=== PATIENT | male | born 1945 | race Caucasian/White ===

== ENCOUNTER → 2017-07-25 | Outpatient (CLI) | payer MEDICARE ==
[~2017-07-25] MED LIST: ACHD5005 PO; CIPR500T4 PO; METR250T32 PO
[2017-07-25 11:07] LABS: HEMOGLOBIN 13.3 G/DL (13.3-17.7); MEAN PLATELET VOLUME 11.1 FL (7.4-10.4); RED BLOOD COUNT 4.35 10^6/uL (4.35-5.85); RED CELL DISTRIBUTION WIDTH 13.8 % (10.0-14.5); WHITE BLOOD COUNT 11.1 10^3/uL (4.3-11.0)
[2017-07-25 11:24] LABS: ALBUMIN 3.8 GM/DL (3.2-4.5); BILIRUBIN,DIRECT 0.3 MG/DL (0.0-0.3); BILIRUBIN,INDIRECT 0.2 MG/DL; BILIRUBIN,TOTAL 0.5 MG/DL (0.1-1.0); CALCIUM 9.4 MG/DL (8.5-10.1); CREATININE SERUM 1.36 MG/DL (0.60-1.30); POTASSIUM 3.5 MMOL/L (3.6-5.0); TOTAL PROTEIN 7.4 GM/DL (6.4-8.2)
== END ==
LOC: LAB 10:53
PROVIDERS: ATTEND Surgery
DX: K80.20 Calculus of gallbladder without cholecystitis without obstruction (principal)
CPT/HCPCS: 36415; 80053; 80076; 82150; 82248; 83690; 85027

== ENCOUNTER 2017-08-06 05:38 | Outpatient (CLI) | payer MEDICARE ==
[~2017-08-06] VITALS: Ht 177.8 cm; Wt 88.5 kg
[2017-08-06] MEDS ORDERED: METR250T32 PO (08:56)
[2017-08-06] MEDS ORDERED: CIPR500T4 PO (08:56)
[2017-08-07] MEDS ORDERED: ACHD5005 PO (13:49)
== END 2017-08-06 09:11 | disposition home or self-care (01) ==
LOC: PREOP 05:38
PROVIDERS: ATTEND Surgery
DX: Z01.818 Encounter for other preprocedural examination (principal)

== ENCOUNTER 2017-08-07 08:22 | Day surgery (SDC) | payer MEDICARE ==
[~2017-08-07] VITALS: Ht 177.8 cm; Wt 88.5 kg
[~2017-08-07 08:22] MED LIST changes: -ACHD5005 PO
--- OUTSIDE RECORDS SUMMARY | 2017-08-07 08:26 | XMS REPORT ---
Author Author EZRA CHANG Organization [employer] Address Unknown Phone Unavailable Care Team Providers Care Synthetic Plasterer Name Role Phone EZRA CHANG CP Unavailable Allergies No Known Allergies Problems Problem Type Condition Code Onset Dates Condition Status Problem Overweight E66.3 Active Problem Family history of heart disease Z82.49 Active Problem Hypertension I10 Active Medications No Known Medications Vital Signs Date/Time: Dec 09, 2015 Blood Pressure Diastolic 88 mmHg Blood Pressure Systolic 142 mmHg Height 70 in Results No Known Results Summary Purpose eClinicalWorks Submission
--- OUTSIDE RECORDS SUMMARY | 2017-08-07 08:26 | XMS REPORT ---
Author Author EZRA CHANG Organization [employer] Address Unknown Phone Unavailable Care Team Providers Care Plunger Shovel Operator Name Role Phone EZRA CHANG CP Unavailable Allergies No Known Allergies Problems Problem Type Condition Code Onset Dates Condition Status Problem Overweight E66.3 Active Problem Family history of heart disease Z82.49 Active Problem Hypertension I10 Active Problem Screening examination for pulmonary tuberculosis V74.1 Active Medications No Known Medications Vital Signs Date/Time: June 16, 2015 Blood Pressure Diastolic 72 mmHg Blood Pressure Systolic 110 mmHg Height 70 in Results No Known Results Summary Purpose eClinicalWorks Submission
--- OUTSIDE RECORDS SUMMARY | 2017-08-07 08:26 | XMS REPORT ---
Author Author EZRA CHANG Organization [employer] Address Unknown Phone Unavailable Care Team Providers Care Outpatient Case Manager Name Role Phone EZRA CHANG CP Unavailable Allergies No Known Allergies Problems Problem Type Condition Code Onset Dates Condition Status Problem Overweight E66.3 Active Problem Family history of heart disease Z82.49 Active Problem Hypertension I10 Active Problem Screening examination for pulmonary tuberculosis V74.1 Active Assessment Hypertension I10 Active Medications Medication Code System Code Instructions Start Date End Date Status Dosage Hydrochlorothiazide [facility] [address]-25 25 MG Orally Once a day Jan 13, 2015 1 tablet Lisinopril [facility] [address]-41 5 MG Orally Once a day Jan 13, 2015 1 tablet Vital Signs Date/Time: Jan 13, 2015 Blood Pressure Diastolic 102 mmHg Blood Pressure Systolic 182 mmHg Height 70 in Results No Known Results Summary Purpose eClinicalWorks Submission
--- OUTSIDE RECORDS SUMMARY | 2017-08-07 08:26 | XMS REPORT ---
Author Author EZRA CHANG Organization [employer] Address Unknown Phone Unavailable Care Team Providers Care Machine Cementer And Folder Name Role Phone EZRA CHANG CP Unavailable Allergies No Known Allergies Problems Problem Type Condition Code Onset Dates Condition Status Problem Overweight E66.3 Active Problem Family history of heart disease Z82.49 Active Problem Hypertension I10 Active Medications No Known Medications Vital Signs Date/Time: Oct 13, 2015 Blood Pressure Diastolic 83 mmHg Blood Pressure Systolic 127 mmHg Height 70 in Results No Known Results Summary Purpose eClinicalWorks Submission
--- OUTSIDE RECORDS SUMMARY | 2017-08-07 08:26 | XMS REPORT ---
Author Author EZRA CHANG Organization [facility] Address [address] [place] [address] Care Team Providers Care Photoengraving Retoucher Name Role Phone CHANGEZRA Edwards Unavailable PROBLEMS Type Condition ICD9-CM Code [id number] Code Onset Dates Condition Status SNOMED Code Problem Hypertriglyceridemia E78.1 Active 241901899 Problem Encounter for annual health examination Z00.00 Active 923092671 Problem Family history of heart disease Z82.49 Active 924844591 Problem Elevated fasting glucose R73.01 Active 012323975 Problem Hypertension I10 Active 35308707 Problem Overweight E66.3 Active 812032104 ALLERGIES Substance Reaction Event Type Date Status Lisinopril cough Drug Allergy Apr, Active IV dye Unknown Non Drug Allergy Apr, Active SOCIAL HISTORY Never Assessed PLAN OF CARE Activity Details Follow Up 3 Months Reason:CHM HTN VITAL SIGNS Height 70 in 2016-04-24 Weight 238.5 lbs 2016-04-24 Temperature 97.7 degrees Fahrenheit 2016-04-24 Heart Rate 72 bpm 2016-04-24 Respiratory Rate 18 2016-04-24 BMI 34.22 kg/m2 2016-04-24 Blood pressure systolic 127 mmHg 2016-04-24 Blood pressure diastolic 83 mmHg 2016-04-24 MEDICATIONS Medication Instructions Dosage Frequency Start Date End Date Duration Status Flax Seed Oil 1000 MG Active potassium Active Fish Oil Active Cozaar 50 MG Orally Once a day 1 tablet 24h Mar, 30 days Active Hydrochlorothiazide 25 MG Orally Once a day 1 tablet 24h Jan, 90 days Active RESULTS Name Result Date Reference Range THYROID ANALYZER 2016-04-24 TSH 3.640 0.450-4.500 A1C 2016-04-24 Hemoglobin A1c 6.4 4.8-5.6 CBC 2016-04-24 WBC 5.8 3.4-10.8 RBC 4.54 4.14-5.80 Hemoglobin 14.1 12.6-17.7 Hematocrit 40.4 37.5-51.0 MCV 89 79-97 MCH 31.1 26.6-33.0 MCHC 34.9 31.5-35.7 RDW 14.1 12.3-15.4 Platelets 292 150-379 Neutrophils 63 Lymphs 22 Monocytes 11 Eos 3 Basos 1 Neutrophils (Absolute) 3.7 1.4-7.0 Lymphs (Absolute) 1.3 0.7-3.1 Monocytes(Absolute) 0.6 0.1-0.9 Eos (Absolute) 0.2 0.0-0.4 Baso (Absolute) 0.0 0.0-0.2 Immature Granulocytes 0 Immature Grans (Abs) 0.0 0.0-0.1 LIPID PANEL 2016-04-24 Cholesterol, Total 188 100-199 Triglycerides 166 0-149 HDL Cholesterol 28 >39 VLDL Cholesterol Fredy 33 5-40 LDL Cholesterol Calc 127 0-99 CMP 2016-04-24 Glucose, Serum 116 65-99 BUN 16 8-27 Creatinine, Serum 1.10 0.76-1.27 eGFR If NonAfricn Am 68 >59 eGFR If Africn Am 79 >59 BUN/Creatinine Ratio 15 10-22 Sodium, Serum 143 134-144 Potassium, Serum 3.8 3.5-5.2 Chloride, Serum 99 96-106 Carbon Dioxide, Total 28 18-29 Calcium, Serum 8.9 8.6-10.2 Protein, Total, Serum 6.9 6.0-8.5 Albumin, Serum 4.5 3.6-4.8 Globulin, Total 2.4 1.5-4.5 A/G Ratio 1.9 1.1-2.5 Bilirubin, Total 0.8 0.0-1.2 Alkaline Phosphatase, S 94 39-117 AST (SGOT) 26 0-40 ALT (SGPT) 31 0-44 PROCEDURES Procedure Date Ordered Result Body Site VENIPUNCT, ROUTINE* Apr 24, 2016 GLYCATED HEMOGLOBIN TEST Apr 24, 2016 LAB NOT BILLED BY [facility] Apr 24, 2016 IMMUNIZATIONS No Known Immunizations MEDICAL (GENERAL) HISTORY Type Description Date Medical History HBP Medical History Screening examination for pulmonary tuberculosis Surgical History Gallstones removed 03/2014 Hospitalization History Gallstones- overnight stay 03/2014
--- OUTSIDE RECORDS SUMMARY | 2017-08-07 08:26 | XMS REPORT ---
Author Author EZRA CHANG Organization [employer] Address Unknown Phone Unavailable Care Team Providers Care Nocturnist Physician Name Role Phone EZRA CHANG CP Unavailable Allergies No Known Allergies Problems Problem Type Condition Code Onset Dates Condition Status Problem Overweight E66.3 Active Problem Family history of heart disease Z82.49 Active Problem Hypertension I10 Active Problem Screening examination for pulmonary tuberculosis V74.1 Active Medications No Known Medications Vital Signs Date/Time: June 23, 2015 Blood Pressure Diastolic 70 mmHg Blood Pressure Systolic 110 mmHg Height 70 in Results No Known Results Summary Purpose eClinicalWorks Submission
--- OUTSIDE RECORDS SUMMARY | 2017-08-07 08:26 | XMS REPORT ---
Author Author EZRA CHANG Organization [employer] Address Unknown Phone Unavailable Care Team Providers Care Hot Tamale Worker Name Role Phone EZRA CHANG CP Unavailable Allergies No Known Allergies Problems Problem Type Condition Code Onset Dates Condition Status Problem Overweight E66.3 Active Problem Family history of heart disease Z82.49 Active Problem Hypertension I10 Active Problem Screening examination for pulmonary tuberculosis V74.1 Active Medications No Known Medications Vital Signs Date/Time: Apr 14, 2015 Blood Pressure Diastolic 78 mmHg Blood Pressure Systolic 132 mmHg Height 70 in Results No Known Results Summary Purpose eClinicalWorks Submission
--- OUTSIDE RECORDS SUMMARY | 2017-08-07 08:26 | XMS REPORT ---
Author Author EZRA CHANG Organization [facility] Address [address] [place] [address] Care Team Providers Care Lithographic Press Feeder Name Role Phone EZRA CHANG Unavailable PROBLEMS Type Condition ICD9-CM Code [id number] Code Onset Dates Condition Status SNOMED Code Problem Hypertriglyceridemia E78.1 Active 102485619 Problem Encounter for annual health examination Z00.00 Active 890376307 Problem Family history of heart disease Z82.49 Active 284974781 Problem Elevated fasting glucose R73.01 Active 513084598 Problem Hypertension I10 Active 44186963 Problem Overweight E66.3 Active 928736898 ALLERGIES Unknown Allergies SOCIAL HISTORY No smoking Hx information available PLAN OF CARE VITAL SIGNS MEDICATIONS Medication Instructions Dosage Frequency Start Date End Date Duration Status Hydrochlorothiazide 25 MG Orally Once a day 1 tablet 24h Jan, 90 days Active RESULTS No Results PROCEDURES No Known procedures IMMUNIZATIONS No Known Immunizations
--- OUTSIDE RECORDS SUMMARY | 2017-08-07 08:26 | XMS REPORT ---
Author Author EZRA CHANG Organization [employer] Address Unknown Phone Unavailable Care Team Providers Care Operations Manager/Coordinator Name Role Phone EZRA CHANG CP Unavailable Allergies, Adverse Reactions, Alerts Substance Reaction Event Type IV dye Info Not Available Non Drug Allergy Problems Problem Type Condition Code Onset Dates Condition Status Assessment Exercise counseling Z71.89 Active Problem Family history of heart disease Z82.49 Active Problem Screening examination for pulmonary tuberculosis V74.1 Active Problem Overweight E66.3 Active Assessment Family history of heart disease Z82.49 Active Assessment Dietary counseling Z71.3 Active Assessment General medical exam Z00.00 Active Assessment Overweight E66.3 Active Medications No Known Medications Procedures Procedure Coding System Code Date ELECTROCARDIOGRAM, TRACING CPT-4 39105 Jan 06, 2015 [facility] VISIT NEW PATIENT CPT-4 G0466 Jan 06, 2015 [facility] CPT-4 NOBLL Jan 06, 2015 ASSAY OF PSA, TOTAL CPT-4 42158 Jan 06, 2015 Office Visit, New Pt., Level 3 CPT-4 15934 Jan 06, 2015 VENIPUNCT, ROUTINE* CPT-4 96782 Jan 06, 2015 Vital Signs Date/Time: Jan 06, 2015 Temperature 97.5 F Weight 231.2 lbs Height 70 in BMI 33.17 Index Blood Pressure Diastolic 104 mmHg Blood Pressure Systolic 172 mmHg Cardiac Monitoring Heart Rate 78 bpm Results Name Result Date Reference Range Unit Abnormality Flag ROUTINE VENIPUNCTURE EKG, TRACING (IN-HOUSE) Summary Purpose eClinicalWorks Submission
--- OUTSIDE RECORDS SUMMARY | 2017-08-07 08:26 | XMS REPORT ---
Author Author EZRA CHANG Organization [facility] Address [address] [place] [address] Care Team Providers Care Track Supervisor Name Role Phone EZRA CHANG Unavailable PROBLEMS Type Condition ICD9-CM Code NSS75-QU Code Onset Dates Condition Status SNOMED Code Problem Hypertension I10 Active 72083873 Problem Overweight E66.3 Active 508727901 Problem Family history of heart disease Z82.49 Active 914730473 ALLERGIES Unknown Allergies SOCIAL HISTORY No smoking Hx information available PLAN OF CARE VITAL SIGNS Height 70 in 2015-09-29 Blood pressure systolic 124 mmHg 2015-09-29 Blood pressure diastolic 82 mmHg 2015-09-29 MEDICATIONS Unknown Medications RESULTS No Results PROCEDURES No Known procedures IMMUNIZATIONS No Known Immunizations
--- OUTSIDE RECORDS SUMMARY | 2017-08-07 08:26 | XMS REPORT ---
Author Author EZRA CHANG Organization [employer] Address Unknown Phone Unavailable Care Team Providers Care Silviculture Teacher Name Role Phone EZRA CHANG CP Unavailable Allergies No Known Allergies Problems Problem Type Condition Code Onset Dates Condition Status Problem Family history of heart disease Z82.49 Active Problem Screening examination for pulmonary tuberculosis V74.1 Active Problem Overweight E66.3 Active Medications Medication Code System Code Instructions Start Date End Date Status Dosage Fish Oil [facility] [address]-90 1000 MG Orally Twice a day 1 capsule Results No Known Results Summary Purpose eClinicalWorks Submission
--- OUTSIDE RECORDS SUMMARY | 2017-08-07 08:26 | XMS REPORT ---
Author Author ADALBERTO MEJIA Organization [employer] Address Unknown Phone Unavailable Care Team Providers Care Robotic Welding Operator Name Role Phone ADALBERTO MEJIA CP Unavailable Allergies, Adverse Reactions, Alerts Substance Reaction Event Type IV dye Info Not Available Non Drug Allergy Problems Problem Type Condition Code Onset Dates Condition Status Problem Overweight E66.3 Active Problem Family history of heart disease Z82.49 Active Problem Hypertension I10 Active Assessment Caries K02.9 Active Problem Screening examination for pulmonary tuberculosis V74.1 Active Assessment Dental examination Z01.20 Active Medications Medication Code System Code Instructions Start Date End Date Status Dosage Fish Oil [facility] [address]-48 not defined Hydrochlorothiazide [facility] [address]-63 25 MG Orally Once a day Jan 13, 2015 1 tablet potassium NDC 0 not defined Flax Oil Xtra [facility] [address] not defined Lisinopril [facility] [address]-80 5 MG Orally Once a day Jan 13, 2015 1 tablet Procedures Procedure Coding System Code Date INTRAORL-PERIAPICAL 1 FILM 01012 CPT-4 D0220 Feb 16, 2015 EXTRAC ERUPTED TOOTH/EXPOSED ROOT CPT-4 D7140 Feb 16, 2015 LTD ORAL EVALUATION - PROBLEM FOCUS CPT-4 D0140 Feb 16, 2015 Vital Signs Date/Time: Feb 16, 2015 Blood Pressure Diastolic 98 mmHg Blood Pressure Systolic 153 mmHg Height 70 in Results No Known Results Summary Purpose eClinicalWorks Submission
--- OUTSIDE RECORDS SUMMARY | 2017-08-07 08:27 | XMS REPORT ---
Author Author EZRA CHANG Organization [facility] Address [address] [place] [address] Care Team Providers Care Cattle Producers Name Role Phone EZRA CHANG Unavailable PROBLEMS Type Condition ICD9-CM Code [id number] Code Onset Dates Condition Status SNOMED Code Problem Hypertriglyceridemia E78.1 Active 918142363 Problem Encounter for annual health examination Z00.00 Active 516036736 Problem Family history of heart disease Z82.49 Active 731782581 Problem Elevated fasting glucose R73.01 Active 694856098 Problem Hypertension I10 Active 02626524 Problem Overweight E66.3 Active 154385576 ALLERGIES Unknown Allergies SOCIAL HISTORY No smoking Hx information available PLAN OF CARE VITAL SIGNS MEDICATIONS Unknown Medications RESULTS No Results PROCEDURES No Known procedures IMMUNIZATIONS No Known Immunizations
--- OUTSIDE RECORDS SUMMARY | 2017-08-07 08:27 | XMS REPORT ---
Author Author EZRA CHANG Organization [employer] Address Unknown Phone Unavailable Care Team Providers Care Nutrition Services Assistant Name Role Phone EZRA CHANG CP Unavailable Allergies No Known Allergies Problems Problem Type Condition Code Onset Dates Condition Status Problem Overweight E66.3 Active Problem Family history of heart disease Z82.49 Active Problem Hypertension I10 Active Medications No Known Medications Results No Known Results Summary Purpose eClinicalWorks Submission
--- OUTSIDE RECORDS SUMMARY | 2017-08-07 08:27 | XMS REPORT ---
Author Author EZRA CHANG Organization [facility] Address [address] [place] [address] Care Team Providers Care Flour Distributor Name Role Phone EZRA CHANG Unavailable PROBLEMS Type Condition ICD9-CM Code URP83-WB Code Onset Dates Condition Status SNOMED Code Problem Hypertriglyceridemia E78.1 Active 185395222 Problem Encounter for annual health examination Z00.00 Active 636736464 Problem Family history of heart disease Z82.49 Active 526339267 Problem Hypertension I10 Active 25463120 Problem Overweight E66.3 Active 459707793 ALLERGIES Unknown Allergies SOCIAL HISTORY No smoking Hx information available PLAN OF CARE VITAL SIGNS MEDICATIONS Medication Instructions Dosage Frequency Start Date End Date Duration Status Cozaar 25 MG Orally Once a day 1 tablet 24h Mar, 90 days Active RESULTS No Results PROCEDURES No Known procedures IMMUNIZATIONS No Known Immunizations
--- OUTSIDE RECORDS SUMMARY | 2017-08-07 08:27 | XMS REPORT ---
Author Author EZRA CHANG Organization [employer] Address Unknown Phone Unavailable Care Team Providers Care Passenger Representative Name Role Phone EZRA CHANG CP Unavailable Allergies No Known Allergies Problems Problem Type Condition Code Onset Dates Condition Status Problem Overweight E66.3 Active Problem Family history of heart disease Z82.49 Active Problem Hypertension I10 Active Medications No Known Medications Vital Signs Date/Time: September 15, 2015 Blood Pressure Diastolic 86 mmHg Blood Pressure Systolic 134 mmHg Height 70 in Results No Known Results Summary Purpose eClinicalWorks Submission
--- OUTSIDE RECORDS SUMMARY | 2017-08-07 08:27 | XMS REPORT ---
Author Author EZRA CHANG Organization [employer] Address Unknown Phone Unavailable Care Team Providers Care Environmental Studies Professor Name Role Phone EZRA CHANG CP Unavailable Allergies No Known Allergies Problems Problem Type Condition Code Onset Dates Condition Status Problem Overweight E66.3 Active Problem Family history of heart disease Z82.49 Active Problem Hypertension I10 Active Problem Screening examination for pulmonary tuberculosis V74.1 Active Assessment Hypertension I10 Active Medications No Known Medications Vital Signs Date/Time: Jan 20, 2015 Blood Pressure Systolic 144 mmHg Cardiac Monitoring Heart Rate 84 bpm Height 70 in Blood Pressure Diastolic 80 mmHg Results No Known Results Summary Purpose eClinicalWorks Submission
--- OUTSIDE RECORDS SUMMARY | 2017-08-07 08:27 | XMS REPORT ---
Author LALA Dixon Organization [employer] Address Unknown Phone Unavailable Care Team Providers Care Rental Management Trainee Name Role Phone LALA HAMM CP Unavailable Allergies No Known Allergies Problems Problem Type Condition Code Onset Dates Condition Status Problem Overweight E66.3 Active Problem Family history of heart disease Z82.49 Active Problem Hypertension I10 Active Problem Screening examination for pulmonary tuberculosis V74.1 Active Medications No Known Medications Vital Signs Date/Time: Mar 10, 2015 Blood Pressure Diastolic 80 mmHg Blood Pressure Systolic 148 mmHg Height 70 in Results No Known Results Summary Purpose eClinicalWorks Submission
--- OUTSIDE RECORDS SUMMARY | 2017-08-07 08:27 | XMS REPORT ---
Author Author EZRA CHANG Organization [facility] Address [address] [place] [address] Care Team Providers Care Medical Assembler Name Role Phone EZRA CHANG Unavailable PROBLEMS Type Condition ICD9-CM Code TON92-HR Code Onset Dates Condition Status SNOMED Code Problem Hypertriglyceridemia E78.1 Active 033638673 Problem Encounter for annual health examination Z00.00 Active 545803838 Problem Family history of heart disease Z82.49 Active 977344652 Problem Hypertension I10 Active 61277763 Problem Overweight E66.3 Active 723093474 ALLERGIES Unknown Allergies SOCIAL HISTORY No smoking Hx information available PLAN OF CARE VITAL SIGNS Height 70 in 2016-03-05 Blood pressure systolic 124 mmHg 2016-03-05 Blood pressure diastolic 78 mmHg 2016-03-05 MEDICATIONS Unknown Medications RESULTS No Results PROCEDURES No Known procedures IMMUNIZATIONS No Known Immunizations
--- OUTSIDE RECORDS SUMMARY | 2017-08-07 08:27 | XMS REPORT ---
Author Author EZRA CHANG Organization [employer] Address Unknown Phone Unavailable Care Team Providers Care Oceanic Sciences Professor Name Role Phone EZRA CHANG CP Unavailable Allergies No Known Allergies Problems Problem Type Condition Code Onset Dates Condition Status Problem Overweight E66.3 Active Problem Family history of heart disease Z82.49 Active Problem Hypertension I10 Active Medications No Known Medications Vital Signs Date/Time: September 22, 2015 Blood Pressure Diastolic 78 mmHg Blood Pressure Systolic 132 mmHg Height 70 in Results No Known Results Summary Purpose eClinicalWorks Submission
--- OUTSIDE RECORDS SUMMARY | 2017-08-07 08:27 | XMS REPORT ---
Author Author EZRA CHANG Organization [employer] Address Unknown Phone Unavailable Care Team Providers Care Laundry Machine Mechanic Name Role Phone EZRA CHANG CP Unavailable Allergies, Adverse Reactions, Alerts Substance Reaction Event Type IV dye Info Not Available Non Drug Allergy Problems Problem Type Condition Code Onset Dates Condition Status Problem Overweight E66.3 Active Problem Family history of heart disease Z82.49 Active Problem Hypertension I10 Active Assessment Hypertension I10 Active Assessment Overweight E66.3 Active Medications Medication Code System Code Instructions Start Date End Date Status Dosage Fish Oil [facility] [address]-44 not defined potassium NDC 0 not defined Flax Seed Oil [facility] 57[address] 1000 MG Orally not defined Hydrochlorothiazide [facility] [address]-96 25 MG Orally Once a day Jan 13, 2015 1 tablet Lisinopril [facility] [address]-05 10 mg Orally Once a day Mar 11, 2015 1 tablet Procedures Procedure Coding System Code Date Office Visit, Est Pt., Level 3 CPT-4 06909 Dec 21, 2015 [facility] VISIT ESTABLISHED PATIENT CPT-4 G0467 Dec 21, 2015 Vital Signs Date/Time: Dec 21, 2015 Cardiac Monitoring Heart Rate 64 bpm Weight 236 lbs Height 70 in BMI 33.86 Index Blood Pressure Diastolic 84 mmHg Blood Pressure Systolic 120 mmHg Results No Known Results Summary Purpose eClinicalWorks Submission
--- OUTSIDE RECORDS SUMMARY | 2017-08-07 08:27 | XMS REPORT ---
Author Author EZRA CHANG Organization [employer] Address Unknown Phone Unavailable Care Team Providers Care Pipeline Controller Name Role Phone EZRA CHANG CP Unavailable Allergies No Known Allergies Problems Problem Type Condition Code Onset Dates Condition Status Problem Overweight E66.3 Active Problem Family history of heart disease Z82.49 Active Problem Hypertension I10 Active Medications No Known Medications Vital Signs Date/Time: Jan 30, 2016 Blood Pressure Diastolic 76 mmHg Blood Pressure Systolic 124 mmHg Height 70 in Results No Known Results Summary Purpose eClinicalWorks Submission
--- OUTSIDE RECORDS SUMMARY | 2017-08-07 08:27 | XMS REPORT ---
Author Author EZRA CHANG Organization [employer] Address Unknown Phone Unavailable Care Team Providers Care Sewing Machine Operator Name Role Phone EZRA CHANG CP Unavailable Allergies No Known Allergies Problems Problem Type Condition Code Onset Dates Condition Status Problem Overweight E66.3 Active Problem Family history of heart disease Z82.49 Active Problem Hypertension I10 Active Problem Screening examination for pulmonary tuberculosis V74.1 Active Medications No Known Medications Vital Signs Date/Time: Mar 24, 2015 Blood Pressure Diastolic 76 mmHg Blood Pressure Systolic 132 mmHg Height 70 in Results No Known Results Summary Purpose eClinicalWorks Submission
--- OUTSIDE RECORDS SUMMARY | 2017-08-07 08:27 | XMS REPORT ---
Author Author EZRA CHANG Organization [facility] Address [address] [place] [address] Care Team Providers Care Vp Ad Sales West Name Role Phone EZRA CHANG Unavailable PROBLEMS Type Condition ICD9-CM Code TOY45-VN Code Onset Dates Condition Status SNOMED Code Problem Hypertension I10 Active 47227920 Problem Overweight E66.3 Active 448015389 Problem Family history of heart disease Z82.49 Active 363449532 ALLERGIES Unknown Allergies SOCIAL HISTORY No smoking Hx information available PLAN OF CARE VITAL SIGNS MEDICATIONS Medication Instructions Dosage Frequency Start Date End Date Duration Status Hydrochlorothiazide 25 MG Orally Once a day APPT NEEDED FOR REFILL 1 tablet Jan, Active Lisinopril 10 mg Orally Once a day APPT NEEDED FOR REFILL 1 tablet Mar Active RESULTS No Results PROCEDURES No Known procedures IMMUNIZATIONS No Known Immunizations
--- OUTSIDE RECORDS SUMMARY | 2017-08-07 08:27 | XMS REPORT ---
Author Author EZRA CHANG Organization [employer] Address Unknown Phone Unavailable Care Team Providers Care Paving And Surfacing Labourer Name Role Phone EZRA CHANG CP Unavailable Allergies No Known Allergies Problems Problem Type Condition Code Onset Dates Condition Status Problem Overweight E66.3 Active Problem Family history of heart disease Z82.49 Active Problem Hypertension I10 Active Medications No Known Medications Vital Signs Date/Time: Jan 05, 2016 Blood Pressure Diastolic 84 mmHg Blood Pressure Systolic 132 mmHg Height 70 in Results No Known Results Summary Purpose [employer] Submission
--- OUTSIDE RECORDS SUMMARY | 2017-08-07 08:27 | XMS REPORT ---
Author Author EZRA CHANG Organization [facility] Address [address] [place] [address] Care Team Providers Care Junior High Math Teacher Name Role Phone EZRA CHANG Unavailable PROBLEMS Type Condition ICD9-CM Code [id number] Code Onset Dates Condition Status SNOMED Code Problem Hypertension I10 Active 13665394 Problem Overweight E66.3 Active 258534374 Problem Family history of heart disease Z82.49 Active 107598390 ALLERGIES Unknown Allergies SOCIAL HISTORY No smoking Hx information available PLAN OF CARE VITAL SIGNS Height 70 in 2015-11-17 Blood pressure systolic 122 mmHg 2015-11-17 Blood pressure diastolic 76 mmHg 2015-11-17 MEDICATIONS Unknown Medications RESULTS No Results PROCEDURES No Known procedures IMMUNIZATIONS No Known Immunizations
--- OUTSIDE RECORDS SUMMARY | 2017-08-07 08:27 | XMS REPORT ---
Author Author EZRA CHANG Organization [employer] Address Unknown Phone Unavailable Care Team Providers Care Manager Cleaning Name Role Phone EZRA CHANG CP Unavailable Allergies No Known Allergies Problems Problem Type Condition Code Onset Dates Condition Status Problem Overweight E66.3 Active Problem Family history of heart disease Z82.49 Active Problem Hypertension I10 Active Problem Screening examination for pulmonary tuberculosis V74.1 Active Assessment Hypertension I10 Active Medications No Known Medications Vital Signs Date/Time: Feb 10, 2015 Blood Pressure Diastolic 84 mmHg Blood Pressure Systolic 128 mmHg Height 70 in Results No Known Results Summary Purpose [employer] Submission
--- OUTSIDE RECORDS SUMMARY | 2017-08-07 08:27 | XMS REPORT ---
Author Author EZRA CHANG Organization [employer] Address Unknown Phone Unavailable Care Team Providers Care Group Chief Operator Name Role Phone EZRA CHANG CP Unavailable Allergies No Known Allergies Problems Problem Type Condition Code Onset Dates Condition Status Problem Overweight E66.3 Active Problem Family history of heart disease Z82.49 Active Problem Hypertension I10 Active Problem Screening examination for pulmonary tuberculosis V74.1 Active Medications Medication Code System Code Instructions Start Date End Date Status Dosage Fish Oil [facility] [address]-98 not defined Hydrochlorothiazide [facility] [address]-03 25 MG Orally Once a day Jan 13, 2015 1 tablet potassium NDC 0 not defined Flax Oil Xtra [facility] 53[address] not defined Lisinopril [facility] [address]-36 5 MG Orally Once a day Jan 13, 2015 1 tablet Vital Signs Date/Time: Feb 24, 2015 Blood Pressure Diastolic 92 mmHg Blood Pressure Systolic 176 mmHg Height 70 in Results No Known Results Summary Purpose [employer] Submission
--- OUTSIDE RECORDS SUMMARY | 2017-08-07 08:27 | XMS REPORT ---
Author Author EZRA CHANG Organization [employer] Address Unknown Phone Unavailable Care Team Providers Care Brine Tank Operator Name Role Phone EZRA CHANG CP Unavailable Allergies No Known Allergies Problems Problem Type Condition Code Onset Dates Condition Status Problem Overweight E66.3 Active Problem Family history of heart disease Z82.49 Active Problem Hypertension I10 Active Problem Screening examination for pulmonary tuberculosis V74.1 Active Medications No Known Medications Vital Signs Date/Time: Apr 07, 2015 Blood Pressure Diastolic 72 mmHg Blood Pressure Systolic 122 mmHg Height 70 in Results No Known Results Summary Purpose [employer] Submission
--- OUTSIDE RECORDS SUMMARY | 2017-08-07 08:27 | XMS REPORT ---
Author Author EZRA CHANG Organization [facility] Address [address] [place] [address] Care Team Providers Care Building Code Inspector Name Role Phone EZRA CHANG Unavailable PROBLEMS Type Condition ICD9-CM Code [id number] Code Onset Dates Condition Status SNOMED Code Problem Hypertension I10 Active 93093309 Problem Overweight E66.3 Active 113855961 Problem Family history of heart disease Z82.49 Active 604243072 ALLERGIES Unknown Allergies SOCIAL HISTORY No smoking Hx information available PLAN OF CARE VITAL SIGNS Height 70 in 2015-11-10 Blood pressure systolic 138 mmHg 2015-11-10 Blood pressure diastolic 84 mmHg 2015-11-10 MEDICATIONS Unknown Medications RESULTS No Results PROCEDURES No Known procedures IMMUNIZATIONS No Known Immunizations
--- OUTSIDE RECORDS SUMMARY | 2017-08-07 08:28 | XMS REPORT ---
Author Author EZRA CHANG Organization [facility] Address [address] [place] [address] Care Team Providers Care Operations Technician Name Role Phone EZRA CHANG Unavailable PROBLEMS Type Condition ICD9-CM Code [id number] Code Onset Dates Condition Status SNOMED Code Problem Hypertriglyceridemia E78.1 Active 278341640 Problem Encounter for annual health examination Z00.00 Active 682144889 Problem Family history of heart disease Z82.49 Active 966374880 Problem Elevated fasting glucose R73.01 Active 032715359 Problem Hypertension I10 Active 67240457 Problem Overweight E66.3 Active 420387462 ALLERGIES No Information SOCIAL HISTORY Never Assessed PLAN OF CARE VITAL SIGNS MEDICATIONS Medication Instructions Dosage Frequency Start Date End Date Duration Status Cozaar 50 MG Orally Once a day 1 tablet 24h Mar, 30 days Active RESULTS No Results PROCEDURES No Known procedures IMMUNIZATIONS No Known Immunizations MEDICAL (GENERAL) HISTORY Type Description Date Medical History HBP Medical History Screening examination for pulmonary tuberculosis Surgical History Gallstones removed 03/2014 Hospitalization History Gallstones- overnight stay 03/2014
--- OUTSIDE RECORDS SUMMARY | 2017-08-07 08:28 | XMS REPORT ---
Author Author EZRA CHANG Organization [employer] Address Unknown Phone Unavailable Care Team Providers Care Iron Worker Foreman Name Role Phone ZERA CHANG CP Unavailable Allergies No Known Allergies Problems Problem Type Condition Code Onset Dates Condition Status Problem Family history of heart disease Z82.49 Active Problem Screening examination for pulmonary tuberculosis V74.1 Active Problem Overweight E66.3 Active Assessment General medical exam Z00.00 Active Medications No Known Medications Procedures Procedure Coding System Code Date GLYCATED HEMOGLOBIN TEST CPT-4 88642 Jan 07, 2015 Results No Known Results Summary Purpose [employer] Submission
--- OUTSIDE RECORDS SUMMARY | 2017-08-07 08:28 | XMS REPORT ---
Author Author EZRA CHANG Organization [facility] Address [address] [place] [address] Care Team Providers Care Entry Level Mechanical Engineer Name Role Phone EZRA CHANG Unavailable PROBLEMS Type Condition ICD9-CM Code [id number] Code Onset Dates Condition Status SNOMED Code Problem Hypertension I10 Active 77987566 Problem Overweight E66.3 Active 804743108 Problem Family history of heart disease Z82.49 Active 021953924 ALLERGIES Unknown Allergies SOCIAL HISTORY No smoking Hx information available PLAN OF CARE VITAL SIGNS Height 70 in 2015-12-01 Blood pressure systolic 140 mmHg 2015-12-01 Blood pressure diastolic 76 mmHg 2015-12-01 MEDICATIONS Unknown Medications RESULTS No Results PROCEDURES No Known procedures IMMUNIZATIONS No Known Immunizations
--- OUTSIDE RECORDS SUMMARY | 2017-08-07 08:28 | XMS REPORT ---
Author Author EZRA CHANG Organization [employer] Address Unknown Phone Unavailable Care Team Providers Care Public Address System Operator Name Role Phone EZRA CHANG CP Unavailable Allergies No Known Allergies Problems Problem Type Condition Code Onset Dates Condition Status Problem Overweight E66.3 Active Problem Family history of heart disease Z82.49 Active Problem Hypertension I10 Active Medications No Known Medications Vital Signs Date/Time: September 08, 2015 Blood Pressure Diastolic 78 mmHg Blood Pressure Systolic 120 mmHg Height 70 in Results No Known Results Summary Purpose [employer] Submission
--- OUTSIDE RECORDS SUMMARY | 2017-08-07 08:28 | XMS REPORT ---
Author Author EZRA CHANG Organization [employer] Address Unknown Phone Unavailable Care Team Providers Care Band Leader Name Role Phone EZRA CHANG CP Unavailable Allergies No Known Allergies Problems Problem Type Condition Code Onset Dates Condition Status Problem Overweight E66.3 Active Problem Family history of heart disease Z82.49 Active Problem Hypertension I10 Active Problem Screening examination for pulmonary tuberculosis V74.1 Active Assessment Hypertension I10 Active Medications No Known Medications Vital Signs Date/Time: Mar 17, 2015 Blood Pressure Diastolic 74 mmHg Blood Pressure Systolic 122 mmHg Height 70 in Results No Known Results Summary Purpose [employer] Submission
--- OUTSIDE RECORDS SUMMARY | 2017-08-07 08:28 | XMS REPORT ---
Author Author EZRA CHANG Organization [employer] Address Unknown Phone Unavailable Care Team Providers Care Therapeutic Mentor Name Role Phone EZRA CHANG CP Unavailable Allergies No Known Allergies Problems Problem Type Condition Code Onset Dates Condition Status Problem Overweight E66.3 Active Problem Family history of heart disease Z82.49 Active Problem Hypertension I10 Active Problem Screening examination for pulmonary tuberculosis V74.1 Active Assessment Hypertension I10 Active Medications No Known Medications Vital Signs Date/Time: Mar 30, 2015 Blood Pressure Diastolic 70 mmHg Blood Pressure Systolic 122 mmHg Height 70 in Results No Known Results Summary Purpose [employer] Submission
--- OUTSIDE RECORDS SUMMARY | 2017-08-07 08:28 | XMS REPORT ---
Author Author EZRA CHANG Organization [facility] Address [address] [place] [address] Care Team Providers Care Auto Technician Mechanic Name Role Phone EZRA CHANG Unavailable PROBLEMS Type Condition ICD9-CM Code [id number] Code Onset Dates Condition Status SNOMED Code Problem Hypertriglyceridemia E78.1 Active 627108348 Problem Encounter for annual health examination Z00.00 Active 304564784 Problem Family history of heart disease Z82.49 Active 095649269 Problem Hypertension I10 Active 69635655 Problem Overweight E66.3 Active 107958963 ALLERGIES Unknown Allergies SOCIAL HISTORY No smoking Hx information available PLAN OF CARE VITAL SIGNS Height 70 in 2015-11-25 Blood pressure systolic 120 mmHg 2015-11-25 Blood pressure diastolic 80 mmHg 2015-11-25 MEDICATIONS Unknown Medications RESULTS No Results PROCEDURES No Known procedures IMMUNIZATIONS No Known Immunizations
--- OUTSIDE RECORDS SUMMARY | 2017-08-07 08:28 | XMS REPORT ---
Author Author EZRA CHANG Organization [employer] Address Unknown Phone Unavailable Care Team Providers Care Business Process Coordinator Name Role Phone EZRA CHANG CP Unavailable Allergies No Known Allergies Problems Problem Type Condition Code Onset Dates Condition Status Problem Overweight E66.3 Active Problem Family history of heart disease Z82.49 Active Problem Hypertension I10 Active Medications No Known Medications Vital Signs Date/Time: Oct 20, 2015 Blood Pressure Diastolic 82 mmHg Blood Pressure Systolic 124 mmHg Height 70 in Results No Known Results Summary Purpose [employer] Submission
--- OUTSIDE RECORDS SUMMARY | 2017-08-07 08:28 | XMS REPORT ---
Author Author EZRA CHANG Organization [employer] Address Unknown Phone Unavailable Care Team Providers Care Installations Inspector Name Role Phone EZRA CHANG CP Unavailable Allergies No Known Allergies Problems Problem Type Condition Code Onset Dates Condition Status Problem Overweight E66.3 Active Problem Family history of heart disease Z82.49 Active Problem Hypertension I10 Active Problem Screening examination for pulmonary tuberculosis V74.1 Active Assessment Hypertension I10 Active Medications No Known Medications Vital Signs Date/Time: June 30, 2015 Blood Pressure Diastolic 76 mmHg Blood Pressure Systolic 120 mmHg Height 70 in Results No Known Results Summary Purpose [employer]Works Submission
--- OUTSIDE RECORDS SUMMARY | 2017-08-07 08:28 | XMS REPORT ---
Author Author EZRA CHANG Organization [employer] Address Unknown Phone Unavailable Care Team Providers Care Esl Instructor Name Role Phone EZRA CHANG CP Unavailable [...] Instructions Start Date End Date Status Dosage Lisinopril [facility] [address]-24 10 MG Orally Once a day Mar 11, 2015 1 tablet Flax Oil Xtra [facility] [address] not defined potassium NDC 0 not defined Fish Oil [facility] [address]-89 not defined Hydrochlorothiazide [facility] [address]-38 25 MG Orally Once a day Jan 13, 2015 1 tablet Procedures Procedure Coding System Code Date Office Visit, Est Pt., Level 3 CPT-4 95321 Mar 11, 2015 [facility] VISIT ESTABLISHED PATIENT CPT-4 G0467 Mar 11, 2015 Vital Signs Date/Time: Mar 11, 2015 Temperature 97.8 F Weight 225.4 lbs Height 70 in BMI 32.34 Index Blood Pressure Diastolic 88 mmHg Blood Pressure Systolic 158 mmHg Cardiac Monitoring Heart Rate 80 bpm Results No Known Results Summary Purpose [employer] Submission
--- OUTSIDE RECORDS SUMMARY | 2017-08-07 08:28 | XMS REPORT ---
Author Author EZRA CHANG Organization [employer] Address Unknown Phone Unavailable Care Team Providers Care Tea And Spice Supervisor Name Role Phone EZRA CHANG CP Unavailable Allergies No Known Allergies Problems Problem Type Condition Code Onset Dates Condition Status Problem Overweight E66.3 Active Problem Family history of heart disease Z82.49 Active Problem Hypertension I10 Active Medications No Known Medications Vital Signs Date/Time: Jan 23, 2016 Blood Pressure Diastolic 70 mmHg Blood Pressure Systolic 118 mmHg Height 70 in Results No Known Results Summary Purpose [employer] Submission
--- OUTSIDE RECORDS SUMMARY | 2017-08-07 08:28 | XMS REPORT ---
Author Author EZRA CHANG Organization [facility] Address [address] [place] [address] Care Team Providers Care Cloth Printer Name Role Phone EZRA CHANG Unavailable PROBLEMS Type Condition ICD9-CM Code [id number] Code Onset Dates Condition Status SNOMED Code Problem Hypertriglyceridemia E78.1 Active 462462358 Problem Encounter for annual health examination Z00.00 Active 811095808 Problem Family history of heart disease Z82.49 Active 273723695 Problem Elevated fasting glucose R73.01 Active 224116666 Problem Hypertension I10 Active 47709979 Problem Overweight E66.3 Active 392561461 ALLERGIES Unknown Allergies SOCIAL HISTORY No smoking Hx information available PLAN OF CARE VITAL SIGNS Height 70 in 2016-03-26 Blood pressure systolic 128 mmHg 2016-03-26 Blood pressure diastolic 77 mmHg 2016-03-26 MEDICATIONS Unknown Medications RESULTS No Results PROCEDURES No Known procedures IMMUNIZATIONS No Known Immunizations
--- OUTSIDE RECORDS SUMMARY | 2017-08-07 08:28 | XMS REPORT ---
Author Author EZRA CHANG Organization [employer] Address Unknown Phone Unavailable Care Team Providers Care Call Center Specialist Name Role Phone EZRA CHANG CP Unavailable Allergies No Known Allergies Problems Problem Type Condition Code Onset Dates Condition Status Problem Overweight E66.3 Active Problem Family history of heart disease Z82.49 Active Problem Hypertension I10 Active Medications No Known Medications Vital Signs Date/Time: Jan 13, 2016 Blood Pressure Diastolic 82 mmHg Blood Pressure Systolic 142 mmHg Height 70 in Results No Known Results Summary Purpose [employer] Submission
--- OUTSIDE RECORDS SUMMARY | 2017-08-07 08:28 | XMS REPORT ---
Author Author EZRA CHANG Organization [facility] Address [address] [place] [address] Care Team Providers Care Stunner Name Role Phone EZRA CHANG Unavailable PROBLEMS Type Condition ICD9-CM Code [id number]-LS Code Onset Dates Condition Status SNOMED Code Problem Hypertriglyceridemia E78.1 Active 686199026 Problem Encounter for annual health examination Z00.00 Active 050775985 Problem Family history of heart disease Z82.49 Active 516441001 Problem Elevated fasting glucose R73.01 Active 691064112 Problem Hypertension I10 Active 28463001 Problem Overweight E66.3 Active 357447938 ALLERGIES No Information SOCIAL HISTORY Never Assessed PLAN OF CARE VITAL SIGNS MEDICATIONS Medication Instructions Dosage Frequency Start Date End Date Duration Status MetFORMIN HCl ER 500 mg Orally twice a day with meals 1 tablet Apr, 30 day(s) Active Atorvastatin Calcium 10 mg Orally Once a day 1 tablet 24h Apr, 90 days Active RESULTS No Results PROCEDURES No Known procedures IMMUNIZATIONS No Known Immunizations MEDICAL (GENERAL) HISTORY Type Description Date Medical History HBP Medical History Screening examination for pulmonary tuberculosis Surgical History Gallstones removed 03/2014 Hospitalization History Gallstones- overnight stay 03/2014
--- OUTSIDE RECORDS SUMMARY | 2017-08-07 08:28 | XMS REPORT ---
Author Author EZRA CHANG Organization [employer] Address Unknown Phone Unavailable Care Team Providers Care Horse Rancher Name Role Phone EZRA CHANG CP Unavailable Allergies No Known Allergies Problems Problem Type Condition Code Onset Dates Condition Status Problem Overweight E66.3 Active Problem Family history of heart disease Z82.49 Active Problem Hypertension I10 Active Problem Screening examination for pulmonary tuberculosis V74.1 Active Medications No Known Medications Vital Signs Date/Time: Feb 03, 2015 Blood Pressure Diastolic 80 mmHg Blood Pressure Systolic 126 mmHg Height 70 in Results No Known Results Summary Purpose [employer] Submission
--- OUTSIDE RECORDS SUMMARY | 2017-08-07 08:28 | XMS REPORT ---
Author Author EZRA CHANG Organization [employer] Address Unknown Phone Unavailable Care Team Providers Care Addiction Counselor Name Role Phone EZRA CHANG CP Unavailable Allergies No Known Allergies Problems Problem Type Condition Code Onset Dates Condition Status Problem Overweight E66.3 Active Problem Family history of heart disease Z82.49 Active Problem Hypertension I10 Active Problem Screening examination for pulmonary tuberculosis V74.1 Active Medications Medication Code System Code Instructions Start Date End Date Status Dosage Lisinopril [facility] [address]-97 5 MG Orally Once a day Jan 13, 2015 1 tablet Hydrochlorothiazide [facility] [address]-30 25 MG Orally Once a day Jan 13, 2015 1 tablet Vital Signs Date/Time: Jan 26, 2015 Blood Pressure Diastolic 90 mmHg Blood Pressure Systolic 158 mmHg Height 70 in Results No Known Results Summary Purpose [employer]Works Submission
--- OUTSIDE RECORDS SUMMARY | 2017-08-07 08:28 | XMS REPORT ---
Author Author EZRA CHANG Organization [employer] Address Unknown Phone Unavailable Care Team Providers Care Block Cuber Name Role Phone EZRA CHANG CP Unavailable Allergies No Known Allergies Problems Problem Type Condition Code Onset Dates Condition Status Problem Overweight E66.3 Active Problem Family history of heart disease Z82.49 Active Problem Hypertension I10 Active Medications No Known Medications Vital Signs Date/Time: Jan 16, 2016 Blood Pressure Diastolic 78 mmHg Blood Pressure Systolic 124 mmHg Height 70 in Results No Known Results Summary Purpose [employer]Works Submission
[2017-08-07 08:30] VITALS: BP 134/97
[2017-08-07] MEDS ORDERED: LACTATED RINGERS 1,000 ML IV PRN (08:37)
[2017-08-07] MEDS ORDERED: ceFAZolin 2 GM IV Premixed 50 ML IV ONE ×2 (08:45→15:00)
[2017-08-07] MEDS ORDERED: metroNIDAZOLE 500MG/100ML IVPB 100 ML IV ONE ×2 (08:45→15:00)
--- NOTE | 2017-08-07 09:37 | Progress Note-Pre Operative ---
Pre-Operative Progress Note H&P Reviewed The H&P was reviewed, patient examined and no changes noted. Date Seen by Provider: July 25, 2017 Time Seen by Provider: 12:50 Date H&P Reviewed: Aug 07, 2017 Time H&P Reviewed: 09:37 Pre-Operative Diagnosis: Gallstones SHRADDHA WHEELER MD Aug 07, 2017 9:37 am
[2017-08-07] MEDS ORDERED: ONDANSETRON 4 MG/2 ML (SDV) Z0FRAN ONE (09:45)
[2017-08-07] MEDS ORDERED: DEXAMETHASONE 10 MG/ML (DECADRON) 1 ML VIAL ONE (09:45)
[2017-08-07] MEDS ORDERED: BUP/EPI 0.5% 1:200,000 (SENSORCAINE) 30 ML VIAL ONE (09:45)
[2017-08-07] MEDS ORDERED: proPOfol 200 MG/20 ML (DIPRIVAN) VIAL IV ONE (09:46)
[2017-08-07] MEDS ORDERED: SEVOFLURANE (ULTANE) 15 ML INHAL SOLN ONE ×6 (09:46→12:29)
[2017-08-07] MEDS ORDERED: LIDOCAINE PF 2% 5 ML (XYLOCAINE) VIAL ONE (09:46)
[2017-08-07] MEDS ORDERED: fentaNYL INJECTION 100 MCG/2 ML AMP ONE ×2 (09:46→11:22)
[2017-08-07] MEDS ORDERED: MIDAZOLAM 2 MG/2 ML (VERSED) VIAL ONE (09:46)
[2017-08-07] MEDS ORDERED: ROCURONIUM 10 MG/ML 5 ML SYRINGE IV ONE ×2 (12:24)
[2017-08-07] MEDS ORDERED: GLYCOPYRROLATE 0.2 MG/ML (ROBINUL) 2 ML VIAL ONE (12:25)
[2017-08-07] MEDS ORDERED: NEOSTIGMINE 1 MG/ML 5 ML SYRINGE ONE (12:25)
[2017-08-07] MEDS ORDERED: morphine INJ 4 MG/ML 1 ML (VIAL/SYRINGE) ONE (13:15)
[2017-08-07 13:35] VITALS: BP 134/78
[2017-08-07] MEDS ORDERED: ACHD5005 PO (13:49)
--- NOTE | 2017-08-07 13:50 | Discharge Inst-Simple/Standard ---
Discharge Inst-Standard Discharge Medications New, Converted or Re-Newed RX: RX on Chart Patient Instructions/Follow Up Plan of Care/Instructions/FU: Please give 1 g of Ancef and 500 mg of Flagyl IV at 3 p.m. prior to discharge. Incentive spirometry. Follow-up in one week. Activity as Tolerated: Yes Discharge Diet: No Restrictions SHRADDHA WHEELER MD Aug 07, 2017 1:49 pm
--- NOTE | 2017-08-07 13:59 | Operative Report ---
Operative Report Date of Procedure/Surgery Aug 07, 2017 Surgeon (s) SHRADDHA WHEELER MD After [employer] Teacher (s): N/A Post-Operative Diagnosis 1.Gallstones 2. Empyema of the gallbladder Procedure Performed Robotic-assisted cholecystectomy Description of Procedure Anesthesia Type: General Estimated blood loss (mL): 100 mL Specimen(s) collected/removed gallbladder Description of the Procedure Indication for the procedure: 2 years ago, this gentleman presented to the emergency room with obstructive jaundice due to complicated gallstone disease. He underwent therapeutic ERCP, a single stone impacted at the distal common bile duct being removed endoscopically. Immediate cholecystectomy was recommended but he elected to defer surgery. Quite recently, he presented with a right upper quadrant pain and an endoscopic ultrasound showed, what was labeled as liver abscess, that was drained by the optical manufacturing technician under ultrasound guidance.he has since been placed on oral antibiotics. He returned today for cholecystectomy using minimally invasive technique with robotic assistance. Informed consent was obtained after reviewing the operative details and complications of wound infection, cardiovascular respiratory dysfunction and bile leak. Description of procedure: He was placed supine on the operative table and general anesthesia induced. Ancef and Flagyl were administered intravenously as prophylaxis against wound infection. Sequential compression devices were placed around his legs, to minimize the risk of venous thrombosis. Abdomen was prepared and draped in the usual sterile manner. Pneumoperitoneum was established using a Veress needle introduced through the umbilicus a 12 mm trocar was placed and anatomy visualized using the high definition, 3- dimensional laparoscope associated with da Kimberly system. Under direct view, I placed an 8 mm trocar over each side of the abdomen, followed by a 5 mm trocar over the left upper quadrant. He was then turned into reverse Trendelenburg position with the right side tilted up. The robotic system was then docked in place. Laparoscopic survey confirmed a fragment over the right upper quadrant. By careful dissection, omentum and the adherent transverse colon where revealing an empyema of the gallbladder. Purulent material extruding from the gallbladder was suctioned out and the area thoroughly irrigated. The gallbladder was rather thick due to chronic cholecystitis. The fundus was then retracted cephalad and by using the vessel sealing device thickened tissue around the body and neck of the gallbladder excised, delineating a thick cystic duct and the artery. The former was divided between locking clips. History artery was managed in a similar fashion. Cholecystectomy was then completed using the hook cautery.. After another round of irrigation, gallbladder was placed in an Endo Catch bag and removed via the umbilical trocar site. The fascia over this incision had to be extended cephalad to allow retrieval of the large gallbladder with multiple stones within it. Fascia was then closed using #1 Vicryl, in an interrupted fashion. Skin incisions were closed using 4-0 Vicryl, in a subcuticular fashion 0.5 percent Marcaine with epinephrine was infiltrated along the incisions, both pre-emptively and at the conclusion of the operation. He tolerated the procedure well, was extubated in the operating room and taken to the recovery room in a stable condition. Findings of the Procedure See op report Allergies and Home Medications Allergies Coded Allergies: Iodinated Contrast- Oral and IV Dye (Verified Allergy, Unknown, RASH, ) Home Medications Ciprofloxacin HCl 500 Mg Tablet, 500 MG PO BID, (Reported) Hydrocodone Bit/Acetaminophen 1 Tab Tab, 1-2 TAB PO 4-6HR PRN for PAIN Prescribed by: SHRADDHA WHEELER on 08/07/17 1349 Metronidazole 250 Mg Tablet, 250 MG PO TID, (Reported) Patient Home Medication List Home Medication List Reviewed: Yes SHRADDHA WHEELER MD Aug 07, 2017 1:59 pm
[2017-08-07] MEDS ORDERED: morphine INJ 10 MG/ML 1ML (SYR OR VIAL) IVP PRN (14:00)
[2017-08-07] MEDS ORDERED: ONDANSETRON 4 MG/2 ML (SDV) Z0FRAN IVP PRN (14:00)
[2017-08-07 14:05] VITALS: BP 133/83
[2017-08-07 14:35] VITALS: BP 129/80
[2017-08-07] MEDS ORDERED: HYDROcodone/APAP 5 MG/325 MG (LORTAB) TAB PO ONE (15:00)
[2017-08-07 15:50] VITALS: BP 131/75
[2017-08-07 16:30] VITALS: BP 131/75
== END 2017-08-07 16:30 | disposition home or self-care (01) ==
LOC: SDC 08:22
PROVIDERS: ATTEND Surgery
DX: K80.00 Calculus of gallbladder with acute cholecystitis without obstruction (principal); Z11.2 Encounter for screening for other bacterial diseases
CPT/HCPCS: 87081; 88304; 94664

== ENCOUNTER 2020-07-27 11:24 | Inpatient (IN) | payer MEDICARE ==
[~2020-07-27] VITALS: Ht 177 cm; Wt 106.0 kg
[~2020-07-27 11:24] MED LIST changes: +ACHD5005 PO; -CIPR500T4 PO; +CIPR500T5 PO; +METR-143 PO; -METR250T32 PO
[2020-07-27] MEDS ORDERED: dilTIAZem DRIP PRE-MIX 125 ML IV ONE (11:46)
[2020-07-27] MEDS ORDERED: dilTIAZem DRIP PRE-MIX 125 ML IV SCH (12:00)
[2020-07-27 12:05] LABS: BASOPHILS # (AUTO) 0.1 10^3/uL (0.0-0.1); BASOPHILS % (AUTO) 1 % (0-10); EOSINOPHILS # (AUTO) 0.1 10^3/uL (0.0-0.3); EOSINOPHILS % (AUTO) 1 % (0-10); HEMATOCRIT 40 % (40-54); HEMOGLOBIN 13.3 g/dL (13.3-17.7); LYMPHOCYTES # (AUTO) 0.9 10^3/uL (1.0-4.0); LYMPHOCYTES % (AUTO) 12 % (12-44); MEAN CORPUSCULAR HEMOGLOBIN 30 pg (25-34); MEAN CORPUSCULAR HGB CONC 34 g/dL (32-36); MEAN CORPUSCULAR VOLUME 90 fL (80-99); MEAN PLATELET VOLUME 10.1 fL (9.0-12.2); MONOCYTES # (AUTO) 0.7 10^3/uL (0.0-1.0); MONOCYTES % (AUTO) 9 % (0-12); NEUTROPHILS # (AUTO) 6.1 10^3/uL (1.8-7.8); NEUTROPHILS % (AUTO) 77 % (42-75); PLATELET COUNT 256 10^3/uL (130-400); WHITE BLOOD COUNT 7.9 10^3/uL (4.3-11.0)
[2020-07-27 12:18] LABS: POTASSIUM 3.4 MMOL/L (3.6-5.0)
[2020-07-27 12:20] LABS: CALCIUM 8.7 MG/DL (8.5-10.1)
[2020-07-27 12:21] LABS: INR 1.1 (0.8-1.4); PROTHROMBIN TIME PATIENT 14.5 SEC (12.2-14.7); TOTAL PROTEIN 6.6 GM/DL (6.4-8.2)
[2020-07-27 12:23] LABS: BILIRUBIN,TOTAL 0.7 MG/DL (0.1-1.0)
[2020-07-27 12:24] LABS: CREATININE SERUM 1.27 MG/DL (0.60-1.30)
--- NOTE | 2020-07-27 12:26 | Diagnostic Imaging Report ---
EXAMINATION: Chest 1 view HISTORY: Chest pain COMPARISON: None available. FINDINGS: Heart size upper limits of normal. Prominent pulmonary vasculature which can be seen with pulmonary vascular congestion. There are patchy airspace opacities within both lung bases, right greater than left. No pleural effusion or pneumothorax. The osseous structures are intact. IMPRESSION: 1. Patchy airspace opacities within the lung bases which can be seen with pneumonia, aspiration, or atelectasis. Dictated by: Dictated on workstation # [id number]
[2020-07-27 12:27] LABS: MAGNESIUM 2.1 MG/DL (1.6-2.4)
[2020-07-27 12:48] LABS: TSH (THYROID ANALYZER) 3.17 UIU/ML (0.35-4.94)
--- NOTE | 2020-07-27 14:43 | ED Cardiac General ---
History of Present Illness General Chief Complaint: Cardiac/General Problems Stated Complaint: NOSEBLEED Nursing Triage Note: PT AMB TO ROOM 2 PT CO OF NOSE BLEED, BUT IS NOT BLEEDING AT THIS X. PT STATES HAS INTERMITTENT NOSE BLEEDS SINCE SATURDAY, UPON TAKING V/S PT HR 124-140'S A FIB. PT DENIES HAVING HX OF A-FIB, PT DENIES CP AT THIS X. PT DOES NOT TAKE ANY MEDS CURRENTLY. Source: patient Exam Limitations: no limitations History of Present Illness Date Seen by Provider: July 27, 2020 Time Seen by Provider: 11:45 Initial Comments This 75-year-old gentleman presents to the emergency room initially for evaluation of nosebleeds that have occurred several times over the past few days. However, upon arrival he was noted to be tachycardic with an irregular rhythm and rate in the 140s. This was noted to be atrial fibrillation on EKG. Patient has no history of arrhythmia. He has had hypertension in the past. He does not take any medications. He is not presently under the care of any physicians. He reports being fairly averse to healthcare interactions. Patient also reports recent swelling of the lower extremities and abdomen over the past 2 to 3 weeks. Allergies and Home Medications Allergies Coded Allergies: Iodinated Contrast Media (Verified Allergy, Unknown, RASH, 08/06/17) Home Medications Ciprofloxacin HCl 500 Mg Tablet, 500 MG PO BID, (Reported) Hydrocodone Bit/Acetaminophen 1 Tab Tab, 1-2 TAB PO 4-6HR PRN for PAIN Prescribed by: SHRADDHA WHEELER on 08/07/17 1349 Metronidazole 250 Mg Tablet, 250 MG PO TID, (Reported) Patient Home Medication List Home Medication List Reviewed: Yes Review of Systems Review of Systems Constitutional: no symptoms reported EENTM: See HPI Respiratory: No Symptoms Reported Cardiovascular: See HPI Gastrointestinal: No Symptoms Reported Genitourinary: No Symptoms Reported Musculoskeletal: no symptoms reported Skin: no symptoms reported Psychiatric/Neurological: No Symptoms Reported Endocrine: No Symptoms Reported Hematologic/Lymphatic: No Symptoms Reported Past [id number]-Wfumuk Hx Past Med/Social Hx: Reviewed Nursing Past Med/Soc Hx Patient Social History Recent Infectious Disease Expo: No Recent Hopitalizations: No Seasonal Allergies Seasonal Allergies: No Past Medical History Surgeries: Yes Gallbladder, Orthopedic Respiratory: No Cardiac: Yes Hypertension Neurological: No Genitourinary: No Gastrointestinal: No Gall Bladder Disease Musculoskeletal: No Endocrine: No HEENT: No Cancer: No Psychosocial: No Integumentary: No Physical Exam Vital Signs Vital Signs - First Documented 07/27/20 11:35 Temp 36.7 Pulse 125 Resp 18 B/P (MAP) 178/123 (141) O2 Delivery Room Air Capillary Refill : Less Than 3 Seconds Height, Weight, BMI Height: 5'10.00" Weight: 195lbs. 0.0oz. 88.049022oc; 33.00 BMI Method: General Appearance: No Apparent Distress, WD/WN HEENT: PERRL/EOMI, Normal ENT Inspection Neck: Normal Inspection Respiratory: Lungs Clear, Normal Breath Sounds, Accessory Muscle Use (Prolonged and forced expiratory phase) Cardiovascular: Regular Rate, Rhythm, Irregularly Irregular, Tachycardia Gastrointestinal: Non Tender, Soft Extremity: Non Tender, Pedal Edema, Swelling Neurologic/Psychiatric: Alert, Oriented x3, No Motor/Sensory Deficits, Normal Mood/Affect, elevator troubleshooter II-XII Norm as Tested Skin: Normal Color, Warm/Dry Progress/Results/Core Measures Results/Orders Lab Results Laboratory Tests Test 07/27/20 11:45 07/27/20 13:03 Range/Units White Blood Count 7.9 4.3-11.0 10^3/uL Red Blood Count 4.43 4.30-5.52 10^6/uL Hemoglobin 13.3 13.3-17.7 g/dL Hematocrit 40 40-54 % Mean Corpuscular Volume 90 80-99 fL Mean Corpuscular Hemoglobin 30 25-34 pg Mean Corpuscular Hemoglobin Concent 34 32-36 g/dL Red Cell Distribution Width 14.1 10.0-14.5 % Platelet Count 256 130-400 10^3/uL Mean Platelet Volume 10.1 9.0-12.2 fL Immature Granulocyte % (Auto) 1 % Neutrophils (%) (Auto) 77 H 42-75 % Lymphocytes (%) (Auto) 12 12-44 % Monocytes (%) (Auto) 9 0-12 % Eosinophils (%) (Auto) 1 0-10 % Basophils (%) (Auto) 1 0-10 % Neutrophils # (Auto) 6.1 1.8-7.8 10^3/uL Lymphocytes # (Auto) 0.9 L 1.0-4.0 10^3/uL Monocytes # (Auto) 0.7 0.0-1.0 10^3/uL Eosinophils # (Auto) 0.1 0.0-0.3 10^3/uL Basophils # (Auto) 0.1 0.0-0.1 10^3/uL Immature Granulocyte # (Auto) 0.1 0.0-0.1 10^3/uL Prothrombin Time 14.5 12.2-14.7 SEC INR Comment 1.1 0.8-1.4 Activated Partial Thromboplast Time 32 24-35 SEC Sodium Level 145 135-145 MMOL/L Potassium Level 3.4 L 3.6-5.0 MMOL/L Chloride Level 102 98-107 MMOL/L Carbon Dioxide Level 32 21-32 MMOL/L Anion Gap 11 5-14 MMOL/L Blood Urea Nitrogen 19 H 7-18 MG/DL Creatinine 1.27 0.60-1.30 MG/DL Estimat Glomerular Filtration Rate 56 BUN/Creatinine Ratio 15 Glucose Level 138 H 70-105 MG/DL Calcium Level 8.7 8.5-10.1 MG/DL Corrected Calcium 8.7 8.5-10.1 MG/DL Magnesium Level 2.1 1.6-2.4 MG/DL Total Bilirubin 0.7 0.1-1.0 MG/DL Aspartate Amino Transf (AST/SGOT) 20 5-34 U/L Alanine Aminotransferase (ALT/SGPT) 21 0-55 U/L Alkaline Phosphatase 107 40-136 U/L Myoglobin 59.6 10.0-92.0 NG/ML Troponin I 0.029 H <0.028 NG/ML C-Reactive Protein High Sensitivity 1.29 H 0.00-0.50 MG/DL B-Type Natriuretic Peptide 386.7 H <100.0 PG/ML Total Protein 6.6 6.4-8.2 GM/DL Albumin 4.0 3.2-4.5 GM/DL Procalcitonin 0.02 <0.10 NG/ML TSH [place] Testing 3.17 0.35-4.94 UIU/ML SARS-CoV-2 RNA (RT-PCR) Not Detected Not Detecte My Orders Orders - LISA FARMER MD Diltiazem Drip Pre-Mix (Cardizem Drip Pr (07/27/20 11:46) Diltiazem Injection (Cardizem Injection) (07/27/20 11:46) Cbc With Automated Diff (07/27/20 11:58) Magnesium (07/27/20 11:58) Chest 1 View, Ap/Pa Only (07/27/20 11:58) Ekg Tracing (07/27/20 11:58) Comprehensive Metabolic Panel (07/27/20 11:58) Myoglobin Serum (07/27/20 11:58) Protime With Inr (07/27/20 11:58) Partial Thromboplastin Time (07/27/20 11:58) O2 (07/27/20 11:58) Monitor-Rhythm Ecg Trace Only (07/27/20 11:58) Lipid Panel (07/28/20 06:00) Ed Iv/Invasive Line Start (07/27/20 11:58) Troponin I (07/27/20 11:58) Diltiazem Drip Pre-Mix (Cardizem Drip Pr (07/27/20 12:00) Diltiazem Injection (Cardizem Injection) (07/27/20 12:00) Thyroid Analyzer (07/27/20 12:00) BNP (07/27/20 12:25) Hs C Reactive Protein (07/27/20 12:53) Covid 19 Inhouse Test (07/27/20 12:53) Medications Given in ED Current Medications Medications Dose Ordered Sig/Cara Route Start Time Stop Time Status Last Admin Dose Admin Diltiazem HCl 25 mg STK-MED ONCE .ROUTE 07/27/20 11:46 07/27/20 11:55 DC 07/27/20 11:58 10 MG Diltiazem HCl 125 ml @ ud STK-MED ONCE IV 07/27/20 11:46 07/27/20 11:55 DC 07/27/20 11:58 10 MLS/HR Vital Signs/I&O 07/27/20 11:35 Temp 36.7 Pulse 125 Resp 18 B/P (MAP) 178/123 (141) O2 Delivery Room Air Blood Pressure Mean: 141 Progress Progress Note : Progress Note Patient was started on a Cardizem drip which did improve his heart rate. Nosebleeds did not return. Risks and benefits of admission to the hospital and treatment with rate controlling medications and anticoagulants were discussed. Dr. Valles presented to the ER to evaluate the patient. Patient ultimately consented to treatment and admission. CODE STATUS was discussed. Lovenox was given for initial stroke prevention. An infiltrate was noted on the chest x- ray. The exact etiology of this is noted. Vital signs and labs would not suggest pneumonia. COVID-19 screening was negative. It may be related to pulmonary edema. Initial ECG Impression Date: July 27, 2020 Initial ECG Impression Time: 11:41 Initial ECG Rate: 121 Initial ECG Rhythm: A Fib/Flutter Initial ECG Impression: Atrial Fibrillation w/RVR Comment A. fib with RVR. No ST elevation or depression. Diagnostic Imaging Diagonstic Imaging: Xray Plain Films/CT/US/NM/MRI: chest Comments This x-ray viewed by me and report reviewed. See report below: NAME: ANA LAURA JACKSON [facility] REC#: [id number] PT STATUS: REG ER : 1945 PHYSICIAN: LISA FARMER MD ADMIT DATE: 07/27/20/ER Signed Date of Exam:07/27/20 CHEST 1 VIEW, AP/PA ONLY EXAMINATION: Chest 1 view HISTORY: Chest pain COMPARISON: None available. FINDINGS: Heart size upper limits of normal. Prominent pulmonary vasculature which can be seen with pulmonary vascular congestion. There are patchy airspace opacities within both lung bases, right greater than left. No pleural effusion or pneumothorax. The osseous structures are intact. IMPRESSION: 1. Patchy airspace opacities within the lung bases which can be seen with pneumonia, aspiration, or atelectasis. Dictated by: Dictated on workstation # [id number] Dict: 07/27/20 1214 Trans: 07/27/[address] [facility] [id number] Interpreted by: DINH VIZCARRA DO Electronically signed by: DINH VIZCARRA DO 07/27/20 1228 Departure Communication (Admissions) Time/Spoke to Admitting Phy: 14:21 Dr. Iniguez Time/Spoke to Consulting Phy: 14:15 Dr. Valles Impression Primary Impression: Atrial fibrillation with RVR Additional Impressions: Epistaxis Hypertension Qualified Codes: I10 - Essential (primary) hypertension Pulmonary infiltrate Disposition: ADMITTED INPATIENT Condition: Improved Admissions Decision to Admit Reason: Admit from ER (General) Decision to Admit/Date: July 27, 2020 Time/Decision to Admit Time: 11:55 Departure-Patient Inst. Referrals: ROBERT BIRMINGHAM MD (PCP/Family) Primary Care Physician LISA FARMER MD July 27, 2020 14:43
[2020-07-27] MEDS ORDERED: ENOXAPARIN 100 MG/1 ML (LOVENOX) SYR SC ONE (14:45)
--- NOTE | 2020-07-27 15:03 | Consultation-Cardiology ---
HPI-Cardiology Cardiology Consultation Date of Consultation 07/27/20 Date of Admission Time Seen by Provider: 14:00 Indication: Afib with RVR HPI Patient is a 75 y/o male with no significant PMH. Presented to the ER with complaints of intermittent nosebleed for the past 3-4 days. Denies any chest pain, c/o some dyspnea on exertion and increased peripheral edema over the past month. Noted to be hypternsive on arrival, EKG showing AFib with RVR. Currenlty denies any pain and nose bleed subsided prior to arrival to ER. Denies any significant PMH, however, has not been seen by medical provider in years. Home Medications & Allergies Allergies: Coded Allergies: Iodinated Contrast Media (Verified Allergy, Unknown, RASH, 08/06/17) Home Medication List Reviewed: Yes [id number]-[id number]-[id number] Hx Patient Social History Marital Status: Recreational Drug Use: No Smoking Status: Never a Smoker Recent Hopitalizations: No Past Medical History Discussed below Family Medical History Significant Family History: No Pertinent Family Hx Family Medical Hx Noncontributory Review of Systems-General Review of Systems Constitutional: no symptoms reported, see HPI EENTM: see HPI, double vision, epistaxis; No blurred vision Respiratory: see HPI, dyspnea on exertion, short of breath Cardiovascular: see HPI; No chest pain; edema; No Hx of Intervention, No palpitations Gastrointestinal: No abdominal pain Genitourinary: No dysuria, No frequency Musculoskeletal: see HPI; No back pain, No joint pain Reviewed Test Results Reviewed Test Results Lab Laboratory Tests 07/27/20 11:45: White Blood Count 7.9, Red Blood Count 4.43, Hemoglobin 13.3, Hematocrit 40, Mean Corpuscular Volume 90, Mean Corpuscular Hemoglobin 30, Mean Corpuscular Hemoglobin Concent 34, Red Cell Distribution Width 14.1, Platelet Count 256, Mean Platelet Volume 10.1, Immature Granulocyte % (Auto) 1, Neutrophils (%) (Auto) 77H, Lymphocytes (%) (Auto) 12, Monocytes (%) (Auto) 9, Eosinophils (%) (Auto) 1, Basophils (%) (Auto) 1, Neutrophils # (Auto) 6.1, Lymphocytes # (Auto) 0.9L, Monocytes # (Auto) 0.7, Eosinophils # (Auto) 0.1, Basophils # (Auto) 0.1, Immature Granulocyte # (Auto) 0.1, Prothrombin Time 14.5, INR Comment 1.1, Activated Partial Thromboplast Time 32, Sodium Level 145, Potassium Level 3.4L, Chloride Level 102, Carbon Dioxide Level 32, Anion Gap 11, Blood Urea Nitrogen 19H, Creatinine 1.27, Estimat Glomerular Filtration Rate 56, BUN/Creatinine Ratio 15, Glucose Level 138H, Calcium Level 8.7, Corrected Calcium 8.7, Magnesium Level 2.1, Total Bilirubin 0.7, Aspartate Amino Transf (AST/SGOT) 20, Alanine Aminotransferase (ALT/SGPT) 21, Alkaline Phosphatase 107, Myoglobin 59.6, Troponin I 0.029H, C-Reactive Protein High Sensitivity 1.29H, B-Type Natriuretic Peptide 386.7H, Total Protein 6.6, Albumin 4.0, TSH [place] Testing 3.17 07/27/20 13:03: SARS-CoV-2 RNA (RT-PCR) Not Detected 07/27/20 14:53: ECG Impression ECG Initial ECG Rhythm: A Fib/Flutter Initial ECG Impression: Atrial Fibrillation w/RVR Physical Exam Physical Exam Vital Signs Vital Signs - First Documented 07/27/20 07/27/20 11:35 15:14 Temp 36.7 Pulse 125 Resp 18 B/P (MAP) 178/123 (141) Pulse Ox 95 O2 Delivery Room Air Capillary Refill : Less Than 3 Seconds Height, Weight, BMI Height: 5'10.00" Weight: 195lbs. 0.0oz. 88.284754yr; 33.00 BMI Method: General Appearance: No Apparent Distress, WD/WN HEENT: PERRL/EOMI, Normal ENT Inspection Neck: Non Tender, Supple; No Carotid Bruit Respiratory: Chest Non Tender, Decreased Breath Sounds Cardiovascular: Irregularly Irregular, Tachycardia Gastrointestinal: No Pulsatile Mass, Non Tender, Soft Back: No CVA Tenderness Extremity: No Calf Tenderness, Pedal Edema Neurologic/Psychiatric: Alert, Oriented x3, pharmaceutical physician II-XII Norm as Tested A/P-Cardiology Admission Diagnosis AFib with RVR HTN Type 2 PA Elevated BNP Epistaxis Assessment/Plan AFib with RVR, started on Cardizem gtt, heart rate better controlled. Will start on Lovenox, continue to monitor [id number] score of 2, yearly risk of stroke without OAC is 2.2 percent. Patient started on Lovenox, planning to switch to oral anticoagulation if he did not have any recurrent nosebleed. HTN, blood pressure improving after starting Cardizem, will start Toprol XL 25mg, continue to monitor. Midly elevated troponin, likely type II PA secondary to tachycardia. EKG showing no acute ST changes. Continue to monitor, evaluate 2D Echo Elevated BNP, peripheral edema, start Lasix, evaluate 2D Echo Epistaxis, no active bleeding at this time, will monitor closely after starting Lovenox Morbid obesity, BMI 33. Increased risk of sleep apnea Thank you for allowing us to participate in the management of Mr. Nichole. This is Candice Lundberg PA-C, as a scribe for Dr. Valles Patient was seen and evaluated with Candice, I interviewed and examined the patient, agree with the current scribe note Patient was in atrial fibrillation, heart rate is slightly better controlled. Started on Cardizem drip, adding beta-blockers, started on Lovenox Evaluate 2D echo, monitor tolerance and response, planning to evaluate for any further bleed while on anticoagulation CANDICE MEDEL July 27, 2020 15:03 LA VALLES MD July 27, 2020 15:57
[2020-07-27 15:45] VITALS: BP 170/103
[2020-07-27] MEDS ORDERED: CATHETER FLUSH 10 ML SYR IV PRN (16:15)
[2020-07-27] MEDS: dilTIAZem DRIP PRE-MIX 125 ML IV SCH (16:15)
[2020-07-27] MEDS: FUROSEMIDE 40 MG/4 ML INJ (LASIX) IVP SCH (16:25)
[2020-07-27] MEDS ORDERED: KCL 20 MEQ TAB (K-DUR) PO NR (17:45)
[2020-07-27] MEDS ORDERED: ACETAMINOPHEN 325 MG TABLET PO PRN (18:15)
[2020-07-27] MEDS ORDERED: diphenhydrAMINE 25 MG TAB (BENADRYL) PO PRN (18:15)
[2020-07-27] MEDS ORDERED: MELATONIN 3 MG TABLET PO PRN (18:15)
[2020-07-27] MEDS ORDERED: hydrALAZINE (APESOLINE) 20 MG/ML VIAL IV PRN (18:15)
[2020-07-27] MEDS ORDERED: ONDANSETRON 4 MG (ZOFRAN) ORAL DISSOLVE TAB PO PRN (18:15)
[2020-07-27] MEDS ORDERED: ONDANSETRON 4 MG/2 ML (SDV) Z0FRAN IV PRN (18:15)
[2020-07-27] MEDS ORDERED: ANTACID SUSP 30 ML UDC (MYLANTA) PO PRN (18:15)
[2020-07-27] MEDS ORDERED: polyethylene glycoL POWDER 17 GM (MIRALAX) PACK PO PRN (18:15)
[2020-07-27] MEDS ORDERED: BISACODYL 10 MG SUPP (DULCOLAX) PR PRN (18:15)
[2020-07-27 20:00] VITALS: BP 156/92
[2020-07-27] MEDS: inSUlin ASPART (NovoLOG) 1 UNIT/0.01 ML (CHARGE PER UNIT) SC SCH (20:43)
[2020-07-27 21:00] VITALS: BP 134/102
[2020-07-27] MEDS: CATHETER FLUSH 10 ML SYR IV SCH (21:54)
[2020-07-27] MEDS: SENNOSIDES 8.6 MG (SENOKOT) TAB PO SCH (21:54)
[2020-07-27] MEDS: DOCUSATE SODIUM 100 MG (COLACE) CAP PO SCH (21:54)
[2020-07-27 22:00] VITALS: BP 159/101
[2020-07-27] MEDS ORDERED: OXYMETAZOLINE (AFRIN) 0.05% NA 30 ML BTL ONE (22:48)
[2020-07-27 23:00] VITALS: BP 164/103
[2020-07-28] VITALS (9 sets, daily range): BP systolic 118–168; BP diastolic 81–113
[2020-07-28] MEDS: dilTIAZem DRIP PRE-MIX 125 ML IV SCH (01:04)
[2020-07-28] MEDS: CATHETER FLUSH 10 ML SYR IV SCH (02:48)
[2020-07-28 03:34] LABS: BASOPHILS # (AUTO) 0.1 10^3/uL (0.0-0.1); BASOPHILS % (AUTO) 1 % (0-10); EOSINOPHILS # (AUTO) 0.1 10^3/uL (0.0-0.3); EOSINOPHILS % (AUTO) 1 % (0-10); HEMATOCRIT 39 % (40-54); HEMOGLOBIN 12.7 g/dL (13.3-17.7); LYMPHOCYTES # (AUTO) 1.1 10^3/uL (1.0-4.0); LYMPHOCYTES % (AUTO) 12 % (12-44); MEAN CORPUSCULAR HEMOGLOBIN 30 pg (25-34); MEAN CORPUSCULAR HGB CONC 33 g/dL (32-36); MEAN CORPUSCULAR VOLUME 91 fL (80-99); MEAN PLATELET VOLUME 10.6 fL (9.0-12.2); MONOCYTES # (AUTO) 0.8 10^3/uL (0.0-1.0); MONOCYTES % (AUTO) 9 % (0-12); NEUTROPHILS # (AUTO) 6.8 10^3/uL (1.8-7.8); NEUTROPHILS % (AUTO) 77 % (42-75); PLATELET COUNT 263 10^3/uL (130-400); WHITE BLOOD COUNT 8.8 10^3/uL (4.3-11.0)
[2020-07-28 03:48] LABS: POTASSIUM 3.4 MMOL/L (3.6-5.0)
[2020-07-28 03:49] LABS: CALCIUM 8.4 MG/DL (8.5-10.1)
[2020-07-28 03:54] LABS: CREATININE SERUM 1.2 MG/DL (0.60-1.30)
[2020-07-28 03:57] LABS: MAGNESIUM 2.1 MG/DL (1.6-2.4)
[2020-07-28] MEDS: inSUlin ASPART (NovoLOG) 1 UNIT/0.01 ML (CHARGE PER UNIT) SC SCH (04:45)
[2020-07-28] MEDS ORDERED: ENOXAPARIN 100 MG/1 ML (LOVENOX) SYR SC SCH (05:00)
[2020-07-28] MEDS ORDERED: KCL 20 MEQ TAB (K-DUR) PO SCH (06:00)
[2020-07-28] MEDS ORDERED: MAGNESIUM 1 GM/100 ML IVPB 100 ML IV SCH (06:00)
[2020-07-28] MEDS ORDERED: POTASSIUM CL 10MEQ/50ML IVPB 50 ML IV SCH (06:00)
[2020-07-28] MEDS: FUROSEMIDE 40 MG/4 ML INJ (LASIX) IVP SCH (06:56)
--- NOTE | 2020-07-28 07:31 | Cardiology Progress Note ---
Subjective Date Seen by Provider: July 28, 2020 Time Seen by Provider: 07:28 Subjective/Events-last exam Patient is sitting in bed, had significant nosebleed. Was unable to tolerate Lovenox Review of Systems General: No Chills, No Night Sweats, No Fatigue, No Malaise, No Appetite, No Other HEENT: No Head Aches, No Visual Changes, No Eye Pain, No Ear Pain, No Dysphas ia, No Sinus Congestion, No Post Nasal Drip, No Sore Throat, No Other Pulmonary: No Dyspnea, No Cough, No Pleuritic Chest Pain, No Other Cardiovascular: No: Chest Pain, Palpitations, Orthopnea, Paroxysmal Noc. Dyspnea, Edema, Lt Headedness, Other Objective-Cardiology Exam Last Set of Vital Signs Vital Signs 07/27/20 07/28/20 20:01 06:00 Temp 36.0 Pulse 81 Resp 18 B/P (MAP) 146/100 (115) Pulse Ox 96 O2 Delivery Room Air Capillary Refill : Less Than 3 Seconds I&O Intake and Output 07/28/20 00:00 Intake Total 650 ml Output Total 500 ml Balance 150 ml Intake Oral 650 ml Output Urine Total 500 ml # Voids 1 Daily Weight Change No General: Alert, Oriented X3, Cooperative HEENT: Atraumatic, PERRLA Neck: Supple, No JVD, No Thyromegaly Lungs: Clear to Auscultation, Normal Air Movement Heart: Normal S1, Normal S2, No Murmurs, Other (Atrial fibrillation) Abdomen: Normal Bowel Sounds, Soft, No Tenderness, No Hepatosplenomegaly, No Masses Extremities: No Clubbing, No Cyanosis, No Edema, Normal Pulses, No Tenderness/Swelling Skin: No Rashes, No Breakdown, No Significant Lesion Neuro: Normal Gait, Normal Speech, Strength at 5/5 X4 Ext, Normal Tone, Sensation Intact Psych/Mental Status: Mental Status NL, Mood NL Results Lab Laboratory Tests 07/27/20 11:45 07/28/20 03:08 A/P-Cardiology Admission Diagnosis AFib with RVR HTN Type 2 NE Elevated BNP Epistaxis Assessment/Plan Atrial fibrillation, rate better controlled on Cardizem drip, I will switch to Cardizem CD 240 and evaluate tolerance and response. [id number] score of 2, yearly risk of stroke without OAC is 2.2 percent. Unable to tolerate anticoagulation due to to active nosebleed. Will discontinue Lovenox. Discussed referral for ENT evaluation possible cauterization, will consider initiating oral anticoagulation once bleeding stops. Patient understand the increased risk of stroke Hypertension, evaluate tolerance to Toprol and Cardizem Midly elevated troponin, likely type II NE secondary to tachycardia. EKG showing no acute ST changes. Will consider stress test as an outpatient Elevated BNP, peripheral edema, responded to diuretics. Will switch to oral. Congestive heart failure, acute left ventricular systolic dysfunction, ejection fraction 45 to 50% probably secondary to atrial fibrillation. Nonischemic cardiomyopathy. Epistaxis, no active bleeding at this time, referral for ENT is recommended Morbid obesity, BMI 33. Increased risk of sleep apnea Okay for discharge from cardiology standpoint and follow-up as an outpatient LA CINTRON MD July 28, 2020 07:31
[2020-07-28] MEDS: SENNOSIDES 8.6 MG (SENOKOT) TAB PO SCH (07:57)
[2020-07-28] MEDS: DOCUSATE SODIUM 100 MG (COLACE) CAP PO SCH (07:57)
[2020-07-28] MEDS ORDERED: KCL 20 MEQ TAB (K-DUR) PO ONE (08:00)
[2020-07-28] MEDS ORDERED: DILT240C91 PO (09:44)
[2020-07-28] MEDS ORDERED: MTP25TSR PO (09:44)
[2020-07-28] MEDS ORDERED: FURO20TA4 PO (09:44)
--- NOTE | 2020-07-28 11:45 | Discharge Summary ---
Discharge Summary Hospital Course Problems/Dx: (1) Atrial fibrillation with RVR Status: Acute (2) Hypertension Status: Acute Qualifiers: Qualified Codes: I10 - Essential (primary) hypertension (3) Elevated troponin Status: Acute (4) T2DM (type 2 diabetes mellitus) Status: Acute Qualifiers: Qualified Codes: E11.9 - Type 2 diabetes mellitus without complications (5) Obesity Status: Chronic Qualifiers: Qualified Codes: E66.09 - Other obesity due to excess calories; Z68.33 - Body mass index [BMI] 33.0-33.9, adult Hospital Course Date of Admission: July 27, 2020 at 14:17 Admission Diagnosis : Atrial fibrillation with rapid ventricular response Family Physician/Provider: Efe Sharp MD Date of Discharge: 07/28/20 Discharge Diagnosis: Atrial fibrillation with rapid ventricular response Hospital Course: Jeffrey Nichole is a 75-year-old male who presented with nosebleeds and was admitted with atrial fibrillation with rapid ventricular response. Cardiology was consulted and assisted with his care. He was started on IV Cardizem and his rates improved. He was switched to oral Cardizem and metoprolol. He was unable to tolerate blood thinners due to nosebleeds. The risks and benefits of anticoagulation were discussed with cardiology and the decision was made to not begin anticoagulation at this time. His course was complicated by hypertension which improved with his new medications. His echocardiogram showed a slightly decreased ejection fraction of 45 to 50%. He had a very slight elevation in troponin and there is a plan for outpatient follow up and likely stress test. He was started on low-dose Lasix. His work-up also revealed a new diagnosis of type 2 diabetes mellitus. He was encouraged to work on his diet and exercise with a goal of weight loss. He does not have a primary care physician and would like to establish care with Dr. FLORES. He was discharged home in stable condition. Labs and Pending Lab Test: Laboratory Tests 07/27/20 11:45: White Blood Count 7.9, Red Blood Count 4.43, Hemoglobin 13.3, Hematocrit 40, Mean Corpuscular Volume 90, Mean Corpuscular Hemoglobin 30, Mean Corpuscular Hemoglobin Concent 34, Red Cell Distribution Width 14.1, Platelet Count 256, Mean Platelet Volume 10.1, Immature Granulocyte % (Auto) 1, Neutrophils (%) (Auto) 77H, Lymphocytes (%) (Auto) 12, Monocytes (%) (Auto) 9, Eosinophils (%) ( Auto) 1, Basophils (%) (Auto) 1, Neutrophils # (Auto) 6.1, Lymphocytes # (Auto) 0.9L, Monocytes # (Auto) 0.7, Eosinophils # (Auto) 0.1, Basophils # (Auto) 0.1, Immature Granulocyte # (Auto) 0.1, Prothrombin Time 14.5, INR Comment 1.1, Activated Partial Thromboplast Time 32, Sodium Level 145, Potassium Level 3.4L, Chloride Level 102, Carbon Dioxide Level 32, Anion Gap 11, Blood Urea Nitrogen 19H, Creatinine 1.27, Estimat Glomerular Filtration Rate 56, BUN/Creatinine Ratio 15, Glucose Level 138H, Calcium Level 8.7, Corrected Calcium 8.7, Magnesium Level 2.1, Total Bilirubin 0.7, Aspartate Amino Transf (AST/SGOT) 20, Alanine Aminotransferase (ALT/SGPT) 21, Alkaline Phosphatase 107, Myoglobin 59.6, Troponin I 0.029H, C-Reactive Protein High Sensitivity 1.29H, B-Type Natriuretic Peptide 386.7H, Total Protein 6.6, Albumin 4.0, Procalcitonin 0.02, TSH [place] Testing 3.17 07/27/20 13:03: SARS-CoV-2 RNA (RT-PCR) Not Detected 07/27/20 14:53: Mean Blood Glucose 148H, Hemoglobin A1c 6.8H 07/27/20 20:35: Glucometer 135H 07/28/20 03:08: White Blood Count 8.8, Red Blood Count 4.25L, Hemoglobin 12.7L, Hematocrit 39L, Mean Corpuscular Volume 91, Mean Corpuscular Hemoglobin 30, Mean Corpuscular Hemoglobin Concent 33, Red Cell Distribution Width 14.4, Platelet Count 263, Mean Platelet Volume 10.6, Immature Granulocyte % (Auto) 1, Neutrophils (%) (Auto) 77H, Lymphocytes (%) (Auto) 12, Monocytes (%) (Auto) 9, Eosinophils (%) (Auto) 1, Basophils (%) (Auto) 1, Neutrophils # (Auto) 6.8, Lymphocytes # (Auto) 1.1, Monocytes # (Auto) 0.8, Eosinophils # (Auto) 0.1, Basophils # (Auto) 0.1, Immature Granulocyte # (Auto) 0.0, Sodium Level 144, Potassium Level 3.4L, Chloride Level 102, Carbon Dioxide Level 29, Anion Gap 13, Blood Urea Nitrogen 18, Creatinine 1.20, Estimat Glomerular Filtration Rate 59, BUN/Creatinine Ratio 15, Glucose Level 153H, Calcium Level 8.4L, Magnesium Level 2.1, Triglycerides Level 168H, Cholesterol Level 163, LDL Cholesterol Direct 126, VLDL Cholesterol 34, HDL Cholesterol 27L Home Meds Active Furosemide 20 Mg Tablet 20 Mg PO DAILY 90 Days Diltiazem 24Hr ER (Diltiazem HCl) 240 Mg Cap.er.24h 240 Mg PO DAILY 90 Days Metoprolol Succinate 25 Mg Tab.er.24h 25 Mg PO DAILY 90 Days Assessment/Pt Instructions Take medications as prescribed. Establish care with Dr. FLORES. Follow-up with cardiology. Return with worsening chest pain, shortness of breath, or if you feel like you are getting worse. Discharge Planning: <30 minutes discharge planning Discharge Instructions Discharge Diet: No Restrictions Activity as Tolerated: Yes Consultations Cardiology Discharge Physical Examination Vital Signs Vital Signs Date Time Temp Pulse Resp B/P (MAP) Pulse Ox O2 Delivery O2 Flow Rate FiO2 07/28/20 08:00 81 18 144/113 (123) 96 Room Air 07/28/20 07:54 35.5 General Appearance: No Apparent Distress, WD/WN HEENT: PERRL/EOMI, Pharynx Normal Respiratory: Lungs Clear, Normal Breath Sounds, No Respiratory Distress Cardiovascular: No Edema, No Murmur, Irregularly Irregular (Regular rhythm) Gastrointestinal: Normal Bowel Sounds, Non Tender, Soft Extremity: Normal Inspection, Non Tender, No Pedal Edema Skin: Normal Color, Warm/Dry Neurologic/Psychiatric: Alert, Oriented x3, No Motor/Sensory Deficits, Normal Mood/Affect Allergies: Coded Allergies: Iodinated Contrast Media (Verified Allergy, Unknown, RASH, 08/06/17) Copy Copies To 1: NATHANAEL FLORES MD Discharge Summary Date of Admission July 27, 2020 at 14:17 Date of Discharge Discharge Date: July 28, 2020 Discharge Time: 11:38 Admission Diagnosis Atrial fibrillation with rapid ventricular response Consults/Procedures Consulations Cardiology Discharge Diagnosis (1) Atrial fibrillation with RVR Status: Acute (2) Hypertension Status: Acute Qualifiers: Qualified Codes: I10 - Essential (primary) hypertension (3) T2DM (type 2 diabetes mellitus) Status: Acute Qualifiers: Qualified Codes: E11.9 - Type 2 diabetes mellitus without complications (4) Elevated troponin Status: Acute (5) Obesity Status: Chronic Qualifiers: Qualified Codes: E66.09 - Other obesity due to excess calories; Z68.33 - Body mass index [BMI] 33.0-33.9, adult (6) Epistaxis Status: Acute GABRIEL TAM MD July 28, 2020 11:43
[2020-07-29] MEDS ORDERED: KCL 10 MEQ TAB (MICRO K) PO SCH (07:00)
[2020-07-29] MEDS ORDERED: FUROSEMIDE 20 MG (LASIX) TAB PO SCH (09:00)
--- NOTE | 2020-08-11 22:03 | Physician Query Clarification ---
PQ-Uncertain Diagnosis Admission/Discharge Admission Date: July 27, 2020 at 14:17 Discharge Date: July 28, 2020 at 11:25 GABRIEL Aviles MD The medical record reflects the following clinical scenario: History/Risk Factors:75 y/o male patient admitted with atrial fibrillation, type II NJ was documented only in cardiology notes only. hematology oncology consultant, 07/27: Atrial fibrillation, type II NJ, HTN, elevated BNP. Discharge summary, 07/28: Atrial fibrillation with rapid ventricular response, elevated troponin. Clinical Findings: Troponin-0.029 H, BNP-386.7 H Treatment: Cardizem, low dose Lasix. Question: IsType II NJ a clinically valid diagnosis? Type II NJ was documented in the hematology oncology consultant, 07/27 with no further documentation in the medical record. Please document a response in Progress Note or Discharge Summary. 1. Yes, clinically valid, condition resolved. 2. No, condition ruled out. 3. Other, with explanation of clinical findings. 4. Undetermined, no explanation for clinical findings. Please remember a lack of response to the above will prompt a phone page by [facility] staff. In responding to this query, please exercise your independent professional judgment. The purpose of this communication is to more accurately reflect the complexity of your patients condition. The fact that a question is asked does not imply that any particular answer is desired or expected. Thank you for your timely response to this clarification. Requestors name: [ ] Phone # [ ] THIS PHYSICIAN QUERY FORM IS A PERMANENT PART OF THE MEDICAL RECORD BRII GARCIA Aug 11, 2020 22:03
== END 2020-07-28 11:25 | disposition home or self-care (01) | DRG 281 ==
LOC: EDUNIT# 11:24 → ER 11:26 → ICU 14:17
PROVIDERS: ADMIT Internal Medicine; ATTEND Internal Medicine
DX: I48.91 Unspecified atrial fibrillation (principal); I21.A1 Myocardial infarction type 2; J81.1 Chronic pulmonary edema; I50.9 Heart failure, unspecified; R04.0 Epistaxis; I11.0 Hypertensive heart disease with heart failure; E11.9 Type 2 diabetes mellitus without complications; I42.8 Other cardiomyopathies; E66.01 Morbid (severe) obesity due to excess calories; Z68.33 Body mass index [BMI] 33.0-33.9, adult; Z79.01 Long term (current) use of anticoagulants; Z91.041 Radiographic dye allergy status
CPT/HCPCS: 36415; 71045; 80048; 80053; 80061; 82947; 83036; 83735; 83874; 83880; 84145; 84443; 84484; 85025; 85610; 85730; 86141; 87636; 93005; 93041; 93306; 96372; 96374

== ENCOUNTER 2022-03-18 15:31 | Emergency (ER) | payer MEDICARE ==
[~2022-03-18] VITALS: Ht 178 cm; Wt 129.0 kg
[~2022-03-18 15:31] MED LIST changes: +DILT240C91 PO; +FURO20TA4 PO; +MTP25TSR PO
[2022-03-18 16:24] LABS: HEMATOCRIT 37 % (40-54); HEMOGLOBIN 11.2 g/dL (13.3-17.7); MEAN CORPUSCULAR HEMOGLOBIN 26 pg (25-34); MEAN CORPUSCULAR HGB CONC 31 g/dL (32-36); MEAN CORPUSCULAR VOLUME 84 fL (80-99); WHITE BLOOD COUNT 9.3 10^3/uL (4.3-11.0)
[2022-03-18 16:25] LABS: BASOPHILS # (AUTO) 0.1 10^3/uL (0.0-0.1); BASOPHILS % (AUTO) 1 % (0-10); EOSINOPHILS # (AUTO) 0.7 10^3/uL (0.0-0.3); EOSINOPHILS % (AUTO) 7 % (0-10); LYMPHOCYTES # (AUTO) 0.6 10^3/uL (1.0-4.0); LYMPHOCYTES % (AUTO) 7 % (12-44); MEAN PLATELET VOLUME 10.2 fL (9.0-12.2); MONOCYTES % (AUTO) 11 % (0-12); NEUTROPHILS # (AUTO) 6.8 10^3/uL (1.8-7.8); NEUTROPHILS % (AUTO) 74 % (42-75); PLATELET COUNT 390 10^3/uL (130-400)
[2022-03-18 16:26] LABS: ALBUMIN 3.7 GM/DL (3.2-4.5); POTASSIUM 4.3 MMOL/L (3.6-5.0)
--- NOTE | 2022-03-18 16:26 | ED General ---
General Chief Complaint: Abdominal/GI Problems Stated Complaint: ABD SWELLING Nursing Triage Note: patient to ER via wheelchair with with c/o of abdominal swelling. Patient states the swelling started 3 weeks ago, but today the swelling has got significantly worse since approx 1200. last bowel movement this AM. Patient denies constipation. Source of Information: Patient, Family () Exam Limitations: No Limitations (PATRICIO MONTANEZ) History of Present Illness Date Seen by Provider: Mar 18, 2022 Time Seen by Provider: 15:47 Initial Comments This is a 77yo M with reported pmhx of HTN and afib (not on a/c) who presents for abdominal swelling. Accompanied by and son. Pt reports abdominal swelling started 3wks ago and has worsened until today which was his primary reason for presenting to the ER. Patient endorsed cough, shortness of air, dyspnea on exertion, which these symptoms have been worsening for the past 3 weeks as well. Pt's reports his symptoms of ARAMIS which include audible snoring and occasional cessation of breathing during sleep. Denied orthopnea (he sleeps lateral decubitus with no issue). Denied any abdominal pain, chest pain, extremity pain, nausea, vomiting, change in bowel movements. Current medications include 50mg Metoprolol QD. Allergies to iodine contrast (full body rash). SurgHx includes cholecystectomy. No previous colonoscopy. Patient denies tobacco, alcohol, marijuana, or illicit drug use. Reports he does regularly see a PCP, Lori Gay, though he does not typically believe in "traditional medicine". Patient is hypertensive (BP 164/127), tachycardic (HR 106), and O2Sat 88-94% on RA in the ER. Calculated STOP-BANG score 5 (high risk ARAMIS). Timing/Duration: 1 Week Severity: Moderate, Severe Associated Systoms: No Chest Pain; Cough; No Diaphoresis, No Fever/Chills, No Headaches, No Loss of Appetite; Malaise; No Nausea/Vomiting, No Rash; Shortness of Air; No Syncope; Weakness (PATRICIO MONTANEZ) Initial Comments Patient history and assessment completed by medical student and this provider. Patient reports swelling has been increasing over the last 4 months. Patient has an aversion to healthcare, he openly discusses that he will consider what we recommend for testing and treatment but will ultimately decide what he wants to do or not do. He has been on Cardizem in the past for A-fib but didn't like the way it made him feel. He takes Aspirin daily. (RAE SANCHEZ) Allergies and Home Medications Allergies Coded Allergies: Iodinated Contrast Media (Verified Allergy, Unknown, RASH, 08/06/17) Patient Home Medication List Home Medication List Reviewed: Yes (RAE SANCHEZ) Diltiazem HCl (Diltiazem 24Hr ER) 240 Mg Cap.er.24h, 240 MG PO DAILY Prescribed by: GABRIEL TAM on 07/28/20943 Furosemide (Furosemide) 20 Mg Tablet, 20 MG PO DAILY Prescribed by: GABRIEL TAM on 07/28/20943 Furosemide (Lasix) 40 Mg Tablet, 40 MG PO DAILY Prescribed by: RAE SANCHEZ on 03/18/22 1730 Metoprolol Succinate (Metoprolol Succinate) 25 Mg Tab.er.24h, 25 MG PO DAILY Prescribed by: GABRIEL TAM on 07/28/20943 Review of Systems Review of Systems Constitutional: No chills, No diaphoresis, No fever, No malaise, No weakness Respiratory: cough, dyspnea on exertion; No orthopnea, No phlegm; short of breath Cardiovascular: No chest pain; edema; No Hx of Intervention, No palpitations, No syncope Gastrointestinal: No abdominal pain, No constipation, No diarrhea, No hematemesis, No heartburn, No nausea, No vomiting; other (Abdominal Swelling) Genitourinary: no symptoms reported Skin: no symptoms reported (PATRICIO MONTANEZ) All Other Systems Reviewed Negative Unless Noted: Yes (RAE SANCHEZ) Past Ulnjhlp-Ccmzxf-Kygqzi Hx Patient Social History Tobacco Use?: No Substance use?: No Alcohol Use?: No (PATRICIO MONTANEZ) Seasonal Allergies Seasonal Allergies: No (PATRICIO MONTANEZ) Past Medical History Surgeries: Yes Gallbladder, Orthopedic Respiratory: No Cardiac: Yes Hypertension Neurological: No Genitourinary: No Gastrointestinal: No Gall Bladder Disease Musculoskeletal: No Endocrine: No HEENT: No Cancer: No Psychosocial: No Integumentary: No Blood Disorders: No (PATRICIO MONTANEZ) Cardiac: Yes Atrial Fibrillation (RAE SANCHEZ) Family Medical History Reviewed and Corrections made (ARE SANCHEZ) No Pertinent Family Hx (PATRICIO MONTANEZ) Physical Exam Vital Signs Vital Signs - First Documented 1/15/23 15:40 Temp 35.7 Pulse 106 Resp 24 B/P (MAP) 164/127 (139) Pulse Ox 95 O2 Delivery Room Air (RAE SANCHEZ) Vital Signs Capillary Refill : Less Than 3 Seconds (PATRICIO MONTANEZ) Height, Weight, BMI Height: 5'10.00" Weight: 195lbs. 0.0oz. 88.861515mm; 33.00 BMI Method: General Appearance: No Apparent Distress, WD/WN, Obese Respiratory: Chest Non Tender, No Accessory Muscle Use, No Respiratory Distress, Wheezing (expiratory) Cardiovascular: No Murmur, Normal Peripheral Pulses (normal radial pulses, diminished pedal pulses secondary to edema), Irregularly Irregular Gastrointestinal: Distended (ascitic appearing with palpable fluid wave), Other (diminished bowel sounds) Extremity: Normal Capillary Refill, Non Tender, No Calf Tenderness, Pedal Edema, Other (bilateral 2+ pitting edema at the feet which extends to the) Neurologic/Psychiatric: Alert, Oriented x3, No Motor/Sensory Deficits, Normal Mood/Affect, Abnormal Gait (difficulty with self lambulation) Skin: Normal Color, Warm/Dry (PATRICIO MONTANEZ) HEENT: PERRL/EOMI, Normal ENT Inspection, Moist Mucous Membranes Neurologic/Psychiatric: Abnormal Gait (difficulty with self lambulation due to SOA and generalized weakness) Skin: No Jaundice, No Pallor, No Rash (RAE SANCHEZ) Progress/Results/Core Measures Suspected Sepsis SIRS Temperature: Pulse: 106 Respiratory Rate: 24 Laboratory Tests 03/18/22 15:50: Blood Pressure 164 /127 Mean: 139 Laboratory Tests 03/18/22 15:50: (PATRICIO MONTANEZ) Results/Orders Lab Results Laboratory Tests Test 03/18/22 15:50 03/18/22 17:15 Range/Units White Blood Count 9.3 4.3-11.0 10^3/uL Red Blood Count 4.35 4.30-5.52 10^6/uL Hemoglobin 11.2 L 13.3-17.7 g/dL Hematocrit 37 L 40-54 % Mean Corpuscular Volume 84 80-99 fL Mean Corpuscular Hemoglobin 26 25-34 pg Mean Corpuscular Hemoglobin Concent 31 L 32-36 g/dL Red Cell Distribution Width 19.6 H 10.0-14.5 % Platelet Count 390 130-400 10^3/uL Mean Platelet Volume 10.2 9.0-12.2 fL Immature Granulocyte % (Auto) 0 % Neutrophils (%) (Auto) 74 42-75 % Lymphocytes (%) (Auto) 7 L 12-44 % Monocytes (%) (Auto) 11 0-12 % Eosinophils (%) (Auto) 7 0-10 % Basophils (%) (Auto) 1 0-10 % Neutrophils # (Auto) 6.8 1.8-7.8 10^3/uL Lymphocytes # (Auto) 0.6 L 1.0-4.0 10^3/uL Monocytes # (Auto) 1.0 0.0-1.0 10^3/uL Eosinophils # (Auto) 0.7 H 0.0-0.3 10^3/uL Basophils # (Auto) 0.1 0.0-0.1 10^3/uL Immature Granulocyte # (Auto) 0.0 0.0-0.1 10^3/uL Neutrophils % (Manual) 80 % Lymphocytes % (Manual) 5 % Monocytes % (Manual) 10 % Eosinophils % (Manual) 5 % Basophils % (Manual) 0 % Band Neutrophils 0 % Polychromasia SLIGHT Anisocytosis MODERATE Prothrombin Time 15.0 H 12.2-14.7 SEC INR Comment 1.1 0.8-1.4 Activated Partial Thromboplast Time 35 24-35 SEC Sodium Level 143 135-145 MMOL/L Potassium Level 4.3 3.6-5.0 MMOL/L Chloride Level 103 98-107 MMOL/L Carbon Dioxide Level 26 21-32 MMOL/L Anion Gap 14 5-14 MMOL/L Blood Urea Nitrogen 27 H 7-18 MG/DL Creatinine 1.56 H 0.60-1.30 MG/DL Estimat Glomerular Filtration Rate 46 BUN/Creatinine Ratio 17 Glucose Level 113 H 70-105 MG/DL Calcium Level 9.0 8.5-10.1 MG/DL Corrected Calcium 9.2 8.5-10.1 MG/DL Total Bilirubin 1.2 H 0.1-1.0 MG/DL Aspartate Amino Transf (AST/SGOT) 25 5-34 U/L Alanine Aminotransferase (ALT/SGPT) 19 0-55 U/L Alkaline Phosphatase 208 H 40-136 U/L Troponin I 0.070 H <0.028 NG/ML C-Reactive Protein High Sensitivity 2.17 H 0.00-0.50 MG/DL B-Type Natriuretic Peptide 1042.9 H <100.0 PG/ML Total Protein 6.6 6.4-8.2 GM/DL Albumin 3.7 3.2-4.5 GM/DL Amylase Level 43 25-125 U/L Lipase 42 8-78 U/L Urine Color YELLOW Urine Clarity CLEAR Urine pH 6.0 5-9 Urine Specific [place] 1.020 1.016-1.022 Urine Protein 2+ H NEGATIVE Urine Glucose (UA) NEGATIVE NEGATIVE Urine Ketones NEGATIVE NEGATIVE Urine Nitrite NEGATIVE NEGATIVE Urine Bilirubin NEGATIVE NEGATIVE Urine Urobilinogen 1.0 < = 1.0 MG/DL Urine Leukocyte Esterase NEGATIVE NEGATIVE Urine RBC (Auto) NEGATIVE NEGATIVE Urine RBC NONE /HPF Urine WBC NONE /HPF Urine Squamous Epithelial Cells NONE /HPF Urine Crystals NONE /LPF Urine Bacteria NEGATIVE /HPF Urine Casts NONE /LPF Urine Mucus NEGATIVE /LPF Urine Culture Indicated NO (RAE SANCHEZ INSTRUMENT PERSON) My Orders Orders - DANIEL,RAE INSTRUMENT PERSON Amylase (03/18/22 16:15) Bnp Mobile (03/18/22 16:15) Cbc With Automated Diff (03/18/22 16:15) Comprehensive Metabolic Panel (03/18/22 16:15) Hs C Reactive Protein (03/18/22 16:15) Lipase (03/18/22 16:15) Protime With Inr (03/18/22 16:15) Partial Thromboplastin Time (03/18/22 16:15) Ua Culture If Indicated (03/18/22 16:15) Continuous Ekg Monitoring (03/18/22 16:15) Ekg Tracing (03/18/22 16:15) Chest Pa/Lat (2 View) (03/18/22 16:15) Ct Abdomen/Pelvis Wo (03/18/22 16:18) Manual Differential (03/18/22 15:50) Troponin I Crystal (03/18/22 16:37) Furosemide Injection (Lasix Injection) (03/18/22 16:54) (DANIEL,RAE INSTRUMENT PERSON) Vital Signs/I&O 03/18/22 03/18/22 15:40 17:45 Temp 35.7 Pulse 106 101 Resp 24 20 B/P (MAP) 164/127 (139) 191/135 Pulse Ox 95 96 O2 Delivery Room Air Room Air (RAE SANCHEZ) Vital Signs/I&O Capillary Refill : Less Than 3 Seconds (PATRICIO MONTANEZ) 2 Blood Pressure Mean: 139 Progress Note : Time: 15:47 Progress Note patient assessed. Will obtain labs, CXR, and CT Abdomen/Pelvis. Patient advises that he does not agree with all medical practices, but willing to discuss all plans and make a decision about what he will agree to. [address] with patient after review with Dr. Dimas, offered Paracentesis but patient declined. Will await lab results. Will give Lasix 40 mg IV to assist with diuresis. Discussed Cardizem IV or Drip, patient declined at this time. 1700 lengthy discussion with patient and , explained risks vs benefits after reviewing labs, ekg, bp, pulse, CXR, and CT. Patient understands results and is not willing to be admitted to hospital, at this time. Patient is alert, oriented, faculties intact, and of sound mind to make healthcare decisions. He will consider his options and has appt with Dr. Allen in the next 7-10 days. He is willing to call her office tomorrow and get in sooner. Will do outpatient Lasix PO, stressed the importance to follow up with Dr. Allen or Lori to have K+ re-checked. BNP elevated significantly from previous visit. Troponin elevated. Discussed that patient has significant cardiac risk factors and told him his condition is extremely guarded and could result in his , if he leaves without full work up and treatment. Patient understands these risks and will sign AMA for discharge. Patient urinated multiple times, through the co unseling. [address] Carrion by phone about patient, she will relay patient findings to Dr. Allen for follow up. (RAE SANCHEZ) ECG Initial ECG Impression Date: Mar 18, 2022 Initial ECG Impression Time: 16:50 Initial ECG Rate: 107 Initial ECG Rhythm: A Fib/Flutter Initial ECG Intervals QRSD 90, QT 363, QTc 426 Axes: R 40; T 153 Initial ECG Impression: Atrial Fibrillation w/RVR Initial ECG Comparisson: Unchanged (RAE SANCHEZ) Diagnostic Imaging Diagonstic Imaging: Xray Plain Films/CT/US/NM/MRI: chest Comments [place], [place] NAME: ANA LAURA JACKSON [facility] REC#: [id number] PT STATUS: REG ER : 1945 PHYSICIAN: RAE SANCHEZ ADMIT DATE: 03/18/22/ER Draft Date of Exam:03/18/22 CHEST PA/LAT (2 VIEW) CLINICAL INDICATION: Patient complains of abdominal swelling. Swelling started 2 weeks ago but today it is significantly worse. EXAM: Chest x-ray PA and lateral views. COMPARISON: Chest x-ray dated 07/27/2020. FINDINGS: There is cardiomegaly. There is no significant pulmonary vascular congestion. There is amorphous airspace opacities involving the right lung base which may represent lung infiltrates. Remainder of the lungs is clear. There is left curvature of the thoracic spine again seen. IMPRESSION: 1: There is amorphous airspace opacities involving the right lung base which may represent atelectasis. 2: There is cardiomegaly with no significant pulmonary vascular congestion. Dictated on workstation # [id number] Dict: 03/18/22 1637 Trans: 03/18/22 1643 [facility] [id number] Interpreted by: COY VERDUGO MD Electronically signed by: Reviewed: Reviewed by Me Diagonstic Imaging: CT Plain Films/CT/US/NM/MRI: abdomen, pelvis Comments NAME: ANA LAURA JACKSON [facility] REC#: [id number] PT STATUS: REG ER : 1945 PHYSICIAN: RAE SANCHEZ ADMIT DATE: 03/18/22/ER Draft Date of Exam:03/18/22 CT ABDOMEN/PELVIS WO Clinical indication: Patient with abdominal swelling. Patient states the swelling started 3 weeks ago but today swelling has gotten significantly worse since approximately noon. Exam: CT exam of the abdomen and pelvis is performed without IV or oral contrast using stone protocol. Coronal and sagittal reformatted images were created. Auto Exposure Controls were utilized during the CT exam to meet ALARA standards for radiation dose reduction. Comparisons: CT scan of the abdomen and pelvis with contrast dated 03/06/2014. Findings: There is interval development of small bilateral pleural effusions with the left side more than the right. There is mild patchy atelectasis involving both lung bases. There is cardiomegaly and a moderate sized pericardial effusion which have developed in the interim. There are degenerative spurs involving both hips. There is lower lumbar spine facet arthropathy. There are degenerative spurs involving the lower thoracic spine and lumbar spine. There is small to moderate amount of ascites which has progressed in the interim. Gallbladder is surgically absent in the interim. The liver, spleen and adrenal glands are unremarkable. Atrophy of the pancreas is noted. There is no intrahepatic or extrahepatic ductal dilation. X-ray of both kidneys are noted. Stable prominent extrarenal pelvis, bilaterally, and calyces which has slightly decreased in the interim. There are no stones seen. There is interval increased size of exophytic cyst involving the upper aspect of the left kidney. This disk currently measures 2.4 cm compared to prior study measured at 1.2 cm. Bladder is partially fluid-filled and otherwise unremarkable. There is no intestinal obstruction. Stomach, small bowel and colon show no significant abnormality. There is no lymphadenopathy. There is interval development of anasarca. Impression: 1: There is interval development of moderate to large amounts of pericardial effusion and cardiomegaly. There is interval development of a small to moderate amount of ascites and small bilateral pleural effusions. There is development of anasarca. All of these findings may possibly be cardiogenic given the pericardial effusion. Clinical correlation is suggested. 2: Interval cholecystectomy noted. 3: The remainder of this exam shows no other significant abnormality. Dictated on workstation # [id number] Dict: 03/18/22 1640 Trans: 03/18/22 1704 [facility] [id number] Interpreted by: COY VERDUGO MD Electronically signed by: Reviewed: Reviewed/Discussed (with Dr. Dimas) (RAE SANCHEZ) Departure Impression Primary Impression: Edema Qualified Codes: R60.1 - Generalized edema Additional Impressions: Atrial fibrillation with RVR Pericardial effusion Anasarca Obesity (BMI 35.0-39.9 without comorbidity) Heart failure Qualified Codes: I50.9 - Heart failure, unspecified Hypertension Qualified Codes: I10 - Essential (primary) hypertension Disposition: 07 AGAINST MEDICAL ADVICE Condition: Critical Departure-Patient Inst. Decision time for Depature: 16:55 (RAE SANCHEZ) Referrals: NATHANAEL ALLEN MD (PCP/Family) Primary Care Physician Patient Instructions: Atrial Fibrillation (DC), Dependent Edema (DC), Pericardial Effusion Add. Discharge Instructions: continue Metoprolol and Aspirin. Take Lasix in the morning, daily. You will need labs in 3-5 days to check your potassium. Follow up with Dr Allen or Lori early this week for re-consideration of medical issues. Return to the Emergency Dept for increased shortness of breath, chest pain, weakness, or further medical care. All discharge instructions reviewed with patient and/or family. Voiced understanding. Scripts Furosemide (Lasix) 40 Mg Tablet 40 MG PO DAILY, #10 TAB 0 Refills Prov: RAE SANCHEZ 03/18/22 patient assessed and documented by medical student and this provider. (RAE SANCHEZ) Copy Copies To 1: NATHANAEL ALLEN MD, ABRAHAM Mar 18, 2022 16:26 RAE SANCHEZ Mar 18, 2022 17:00
[2022-03-18 16:28] LABS: TOTAL PROTEIN 6.6 GM/DL (6.4-8.2)
[2022-03-18 16:29] LABS: INR 1.1 (0.8-1.4)
[2022-03-18 16:30] LABS: BILIRUBIN,TOTAL 1.2 MG/DL (0.1-1.0)
[2022-03-18 16:32] LABS: CREATININE SERUM 1.56 MG/DL (0.60-1.30)
--- NOTE | 2022-03-18 16:44 | Diagnostic Imaging Report ---
CLINICAL INDICATION: Patient complains of abdominal swelling. Swelling started 2 weeks ago but today it is significantly worse. EXAM: Chest x-ray PA and lateral views. COMPARISON: Chest x-ray dated 07/27/2020. FINDINGS: There is cardiomegaly. There is no significant pulmonary vascular congestion. There is amorphous airspace opacities involving the right lung base which may represent lung infiltrates. Remainder of the lungs is clear. There is left curvature of the thoracic spine again seen. IMPRESSION: 1: There is amorphous airspace opacities involving the right lung base which may represent atelectasis. 2: There is cardiomegaly with no significant pulmonary vascular congestion. Dictated by: Dictated on workstation # [id number]
[2022-03-18] MEDS ORDERED: FUROSEMIDE 40 MG/4 ML INJ (LASIX) IVP STA (16:54)
[2022-03-18 17:05] LABS: ANISOCYTOSIS MODERATE; BAND NEUTROPHILS 0 %; BASOPHILS % (MANUAL) 0 %; EOSINOPHILS % (MANUAL) 5 %; LYMPHOCYTES % (MANUAL) 5 %; MONOCYTES % (MANUAL) 10 %; NEUTROPHILS % (MANUAL) 80 %; POLYCHROMASIA SLIGHT
--- NOTE | 2022-03-18 17:05 | Diagnostic Imaging Report ---
Clinical indication: Patient with abdominal swelling. Patient states the swelling started 3 weeks ago but today swelling has gotten significantly worse since approximately noon. Exam: CT exam of the abdomen and pelvis is performed without IV or oral contrast using stone protocol. Coronal and sagittal reformatted images were created. Auto Exposure Controls were utilized during the CT exam to meet ALARA standards for radiation dose reduction. Comparisons: CT scan of the abdomen and pelvis with contrast dated 03/06/2014. Findings: There is interval development of small bilateral pleural effusions with the left side more than the right. There is mild patchy atelectasis involving both lung bases. There is cardiomegaly and a moderate sized pericardial effusion which have developed in the interim. There are degenerative spurs involving both hips. There is lower lumbar spine facet arthropathy. There are degenerative spurs involving the lower thoracic spine and lumbar spine. There is small to moderate amount of ascites which has progressed in the interim. Gallbladder is surgically absent in the interim. The liver, spleen and adrenal glands are unremarkable. Atrophy of the pancreas is noted. There is no intrahepatic or extrahepatic ductal dilation. X-ray of both kidneys are noted. Stable prominent extrarenal pelvis, bilaterally, and calyces which has slightly decreased in the interim. There are no stones seen. There is interval increased size of exophytic cyst involving the upper aspect of the left kidney. This disk currently measures 2.4 cm compared to prior study measured at 1.2 cm. Bladder is partially fluid-filled and otherwise unremarkable. There is no intestinal obstruction. Stomach, small bowel and colon show no significant abnormality. There is no lymphadenopathy. There is interval development of anasarca. Impression: 1: There is interval development of moderate to large amounts of pericardial effusion and cardiomegaly. There is interval development of a small to moderate amount of ascites and small bilateral pleural effusions. There is development of anasarca. All of these findings may possibly be cardiogenic given the pericardial effusion. Clinical correlation is suggested. 2: Interval cholecystectomy noted. 3: The remainder of this exam shows no other significant abnormality. Dictated by: Dictated on workstation # [id number]
[2022-03-18 17:27] LABS: BILIRUBIN,URINE NEGATIVE (NEGATIVE); CLARITY,URINE CLEAR; COLOR,URINE YELLOW; GLUCOSE, URINE (UA) NEGATIVE (NEGATIVE); KETONES,URINE NEGATIVE (NEGATIVE); LEUKOCYTE ESTERASE ,URINE NEGATIVE (NEGATIVE); NITRITE,URINE NEGATIVE (NEGATIVE); PROTEIN,URINE 2+ (NEGATIVE)
[2022-03-18] MEDS ORDERED: FURO-124 PO (17:30)
[2022-03-18 17:34] LABS: BACTERIA,URINE NEGATIVE /HPF
[2022-03-18 17:45] VITALS: BP 191/135
== END 2022-03-18 17:45 | disposition left against medical advice (07) ==
LOC: EDUNIT# 15:31 → ER 15:33
DX: I31.39 Other pericardial effusion (noninflammatory) (principal); I48.91 Unspecified atrial fibrillation; I11.0 Hypertensive heart disease with heart failure; I50.9 Heart failure, unspecified; E66.9 Obesity, unspecified; R79.89 Other specified abnormal findings of blood chemistry; Z68.41 Body mass index [BMI] 40.0-44.9, adult; Z90.49 Acquired absence of other specified parts of digestive tract; Z28.310 Unvaccinated for COVID-19
CPT/HCPCS: 36415; 71046; 74176; 80053; 81000; 82150; 83690; 83880; 84484; 85007; 85027; 85610; 85730; 86141; 93005